=== PATIENT | male | born 1955 | race Caucasian/White ===

== ENCOUNTER → 2018-03-21 06:06 | Outpatient (CLI) | payer MEDICARE, SELFPAY ==
--- NOTE | 2018-03-21 06:08 | CI_ITS ---
Cerebrovascular Exam Indications: 433.10 Occlusion/stenosis of carotid artery without cerebral infarction. IMPRESSIONS 1. The bilateral vertebral arteries are patent with normal antegrade flow. 2. Study suggests 50-69% stenosis involving the right internal carotid artery. 3. Study suggests 50-69% stenosis involving the left internal carotid artery. No change from the study of 16-Aug-2017. Carotid duplex study. Complete study and Doppler flow study including spectral analysis, color and lizama scale imaging. Location: Vascular laboratory. Patient status: Outpatient. Tables: Arterial flow: + +--------+--------+ Location V sys V ed + +--------+--------+ Right CCA - proximal 76.2cm/s 17.3cm/s + +--------+--------+ Right CCA - distal 83.3cm/s 17.3cm/s + +--------+--------+ Right ECA 139cm/s -------- + +--------+--------+ Right ICA - proximal 260cm/s 80.8cm/s + +--------+--------+ Right ICA - mid 122cm/s 22.4cm/s + +--------+--------+ Right ICA - distal 113cm/s 29.2cm/s + +--------+--------+ Right vertebral 60.6cm/s -------- + +--------+--------+ Left CCA - proximal 109cm/s 23.6cm/s + +--------+--------+ Left CCA - distal 94.3cm/s 24.7cm/s + +--------+--------+ Left ECA 108cm/s -------- + +--------+--------+ Left ICA - proximal 126cm/s 35.9cm/s + +--------+--------+ Left ICA - mid 106cm/s 28.1cm/s + +--------+--------+ Left ICA - distal 117cm/s 29.2cm/s + +--------+--------+ Left vertebral 35.9cm/s -------- + +--------+--------+ Velocity ratios: + + + + + + Right, V sys Right, V ed Left, V sys Left, V ed + + + + + + Max ICA/dist CCA 3.12 4.67 1.34 1.45 + + + + + + (Report amended ) Electronically signed by: Kael Jewell [id number]
--- NOTE | 2018-03-21 06:08 | NM_ITS ---
History and Indications: Hypertension, hyperlipidemia, family history, chest pain and shortness of breath Procedure: Patient received a 0.4 mg of intravenous Lexiscan, resting heart rate was 58 bpm resting blood pressure 156/75, with intravenous Lexiscan maximum heart rate achieved was 89 bpm which is less than 85% of the maximum predicted heart rate and a blood pressure was 152/68. With Lexiscan patient complained of shortness of breath. Electrocardiogram: Resting electrocardiogram showed sinus bradycardia, premature ventricular complex, with Lexiscan there is less than 1.[address] segment depression noted from the baseline EKG. The EKG portion of the Lexiscan Myoview is nondiagnostic. Cardiac stress and resting SPECT images: Cardiac stress and rest SPECT images were obtained using technetium 99 Myoview 30.6 mCi stress and 10.1 mCi at rest gated SPECT further analysis of segmental wall motion and calculation of the ejection fraction also done. Cardiac stress and rest SPECT images show uniform myocardial activity without segmental perfusion abnormality, computer derived ejection fraction is 60% with no regional wall motion abnormality, right ventricle is normal size and contractility. Conclusion: 1. The EKG portion of the Lexiscan Myoview is nondiagnostic. 2. No scintigraphic evidence of reversible ischemia seen, computer derived ejection fraction is 60% with no regional wall motion abnormality, right ventricle is normal size and contractility. 3. Normal Lexiscan Myoview study.
--- NOTE | 2018-03-21 06:20 | CA_ITS ---
PROCEDURE: 2-D M-mode and color Doppler study INDICATIONS FOR THE TEST: Chest pain X COPD Heart Murmur Tobacco Smoking Palpitations Fatigue Syncope EdemaX HypertensionXDiabetes Mellitus Rheumatic Fever SOBXDOEXObesity HyperlipidemiaX Family History HD Additional History CAD,CKD,PAD,FREQUENT PVCS NOTED PATIENT INFORMATION HEIGHT: 69 WEIGHT:205 GENDER: Male B/P:133/69 2-D/M-MODE INTERPRETATION: 2-D MEASUREMENTS OBSERVED VALUES IN CMS Right Ventricular Dimension (RVDd) 2.5 Interventricular Septum (Thickness)(IVsd) .9 Left Ventricular Internal Dimensions(LVIDd) 4.8 Left Ventricular Posterior Wall (Thickness)(LVPWd) .9 Aortic Root 2.9 Aortic Cusp Separation 1.4 Left Atrial Dimensions (LAD) 3.0 2D 1. Left atrium is mildly enlarged, left ventricle is normal size, there is no concentric left ventricular hypertrophy, visually estimated ejection fraction 55% with no regional wall motion abnormality. 2. The right atrium and right ventricle are normal size and contractility. 3. The aortic valve is thickened and calcified leaflet continue to display mobility. 4. The mitral and tricuspid valve leaflets are minimally thickened. 5. The pulmonic valve is poorly visualized. 6. No significant pericardial effusion noted. DOPPLER INTERROGATION: Doppler interrogation of the aortic, mitral and tricuspid valvular presence of mild mitral and tricuspid regurgitation, tricuspid regurgitation jet velocity is inadequate for calculation of the right ventricular systolic pressure, grade 1 diastolic dysfunction seen without tissue Doppler evidence of raised left atrial pressure. CONCLUSION: 1. Mildly enlarged left atrium, normal left ventricular size, visually estimated ejection fraction of 55% with no regional wall motion abnormality, grade 1 diastolic dysfunction seen without tissue Doppler evidence of raised left atrial pressure. 2. Mild mitral and tricuspid regurgitation 3. No significant pericardial effusion noted.
--- NOTE | 2018-03-21 07:05 | HMH.ITSHM ---
Current Home Medications as stated by this patient Jack Kendall or customer success representative. []ALLOPURINOL LOSARTAN ATORVASTATIN PANTOPRAZOLE BISOPROLOL CLOPIDOGREL AMLODIPINE ASA FIBER HYDROCODONE
[2018-03-21 13:04] LABS: Amphetamine/Metha Screen,Urine Negative ng/mL (<1000); Barbiturates Screen,Urine Negative ng/mL (<200); Benzodiazepines Screen,Urine Negative ng/mL (<200); Cannabinoid Screen,Urine Negative ng/mL (<50); Cocaine Screen,Urine Negative ng/mL (<300); Methadone Screen,Urine Negative ng/mL (<300); Opiate Screen,Urine Positive ng/mL (<300); Phencyclidine Screen,Urine Negative ng/mL (<25)
== END ==
PROVIDERS: PCP Family Medicine; Visit Provider Internal Medicine
DX: I25.10 Atherosclerotic heart disease of native coronary artery without angina pectoris (principal); R06.00 Dyspnea, unspecified; I65.23 Occlusion and stenosis of bilateral carotid arteries; Z51.81 Encounter for therapeutic drug level monitoring
CPT/HCPCS: 78452; 80305; 93017; 93306; 93880; A9502; J2785

== ENCOUNTER → 2018-08-08 10:05 | Outpatient (CLI) | payer MEDICARE, SELFPAY ==
[2018-08-08 10:55] LABS: Amphetamine/Metha Screen,Urine Negative ng/mL (<1000); Barbiturates Screen,Urine Negative ng/mL (<200); Benzodiazepines Screen,Urine Negative ng/mL (<200); Cannabinoid Screen,Urine Negative ng/mL (<50); Cocaine Screen,Urine Negative ng/mL (<300); Methadone Screen,Urine Negative ng/mL (<300); Opiate Screen,Urine Positive ng/mL (<300); Phencyclidine Screen,Urine Negative ng/mL (<25)
== END ==
PROVIDERS: Visit Provider Internal Medicine
DX: G89.29 Other chronic pain (principal)
CPT/HCPCS: 80305

== ENCOUNTER → 2018-10-11 09:56 | Outpatient (CLI) | payer MEDICARE, OTHER, SELFPAY ==
--- NOTE | 2018-10-11 10:02 | CI_ITS ---
Cerebrovascular Exam Indications: 433.10 Occlusion/stenosis of carotid artery without cerebral infarction. IMPRESSIONS 1. The bilateral vertebral arteries are patent with normal antegrade flow. 2. Study suggests 50-69% stenosis involving the left internal carotid artery and 70-90% stenosis of the right internal carotid artery. No change from the study of 21-Mar-2018. History: Coronary artery disease. Risk factors: Hypertension. Carotid duplex study. Complete study and Doppler flow study including spectral analysis, color and lizama scale imaging. Location: Vascular laboratory. Patient status: Outpatient. Tables: Arterial flow: + +--------+--------+ Location V sys V ed + +--------+--------+ Right CCA - proximal 93.5cm/s 16.5cm/s + +--------+--------+ Right CCA - distal 92.7cm/s 15.7cm/s + +--------+--------+ Right ECA 163cm/s -------- + +--------+--------+ Right ICA - proximal 238cm/s 56cm/s + +--------+--------+ Right ICA - mid 153cm/s 47.1cm/s + +--------+--------+ Right ICA - distal 129cm/s 29.5cm/s + +--------+--------+ Right vertebral 69.7cm/s -------- + +--------+--------+ Left CCA - proximal 134cm/s 20.6cm/s + +--------+--------+ Left CCA - distal 94.3cm/s 16.7cm/s + +--------+--------+ Left ECA 127cm/s -------- + +--------+--------+ Left ICA - proximal 151cm/s 34.4cm/s + +--------+--------+ Left ICA - mid 146cm/s 35.4cm/s + +--------+--------+ Left ICA - distal 166cm/s 29.5cm/s + +--------+--------+ Left vertebral 25.9cm/s -------- + +--------+--------+ Velocity ratios: + + + + + + Right, V sys Right, V ed Left, V sys Left, V ed + + + + + + Max ICA/dist CCA 2.57 3.57 1.76 2.12 + + + + + + (Report amended ) Electronically signed by: Kael Jewell [id number]
== END ==
PROVIDERS: PCP Family Medicine; Visit Provider Internal Medicine
DX: R09.89 Other specified symptoms and signs involving the circulatory and respiratory systems (principal)
CPT/HCPCS: 93880

== ENCOUNTER → 2019-02-14 08:53 | Outpatient (CLI) | payer MEDICARE, OTHER, SELFPAY ==
[2019-02-14 16:23] LABS: Amphetamine/Metha Screen,Urine Negative ng/mL (<1000); Barbiturates Screen,Urine Negative ng/mL (<200); Benzodiazepines Screen,Urine Negative ng/mL (<200); Cannabinoid Screen,Urine Negative ng/mL (<50); Cocaine Screen,Urine Negative ng/mL (<300); Methadone Screen,Urine Negative ng/mL (<300); Opiate Screen,Urine Positive ng/mL (<300); Phencyclidine Screen,Urine Negative ng/mL (<25)
== END ==
PROVIDERS: Visit Provider Internal Medicine
DX: G89.29 Other chronic pain (principal)
CPT/HCPCS: 80305

== ENCOUNTER → 2019-05-30 07:34 | Outpatient (CLI) | payer MEDICARE, OTHER, SELFPAY ==
--- NOTE | 2019-05-30 07:35 | CA_ITS ---
APPROVED REPORT [employer] Consultant: Sharri Eller RVT Laterality: Bilateral Study Quality: Adequate Indications: BLAZE Risk Factors Hypertension: Hyperlipidemia CAD, Doppler Spectral Velocity Analysis ECA (R) 129.00/ cm/s ECA (L) 158.00/36.30 cm/s dICA (R) 248.00/44.90 cm/s dICA (L) 179.00/40.30 cm/s Myrna (R) 265.00/67.40 cm/s Myrna (L) 197.00/32.40 cm/s pICA (R) 267.00/70.20 cm/s pICA (L) 160.00/29.50 cm/s dCCA (R) 127.00/15.70 cm/s dCCA (L) 124.00/20.60 cm/s pCCA (R) 120.00/11.80 cm/s pCCA (L) 148.00/17.70 cm/s Vert (R) 77.60/17.70 cm/s Vert (L) 50.90/ cm/s ICA/CCA 2.10 ICA/CCA 1.59 Conclusion Study suggests 50-69% stenosis of the right internal cartoid artery unchanged 10/11/18. Study suggests 50-69% stenosis of the left internal cartoid artery unchanged 10/11/18. Antegrade flow seen bilateral vertebral arteries. Electronically signed by : Kael Jewell MD 05/30/2019 17:13:20
== END ==
PROVIDERS: PCP Family Medicine; Visit Provider Internal Medicine
DX: I65.23 Occlusion and stenosis of bilateral carotid arteries (principal)
CPT/HCPCS: 93880

== ENCOUNTER → 2019-11-28 07:32 | Outpatient (CLI) | payer MEDICARE, OTHER, SELFPAY ==
--- NOTE | 2019-11-28 | CA_ITS ---
APPROVED REPORT Senior Private Client Advisor: CT Laterality: Bilateral Study Quality: Adequate Risk Factors Hypertension: Hyperlipidemia CAD, Doppler Spectral Velocity Analysis ECA (R) 192.10/10.50 cm/s ECA (L) 187.00/32.00 cm/s dICA (R) 153.70/34.20 cm/s dICA (L) 213.10/46.00 cm/s Myrna (R) 225.50/37.60 cm/s Myrna (L) 190.80/33.40 cm/s pICA (R) 269.90/66.60 cm/s pICA (L) 150.40/32.00 cm/s dCCA (R) 101.10/18.00 cm/s dCCA (L) 117.60/20.00 cm/s pCCA (R) 128.50/12.90 cm/s pCCA (L) 157.60/21.20 cm/s Vert (R) 82.30/20.60 cm/s Vert (L) 33.10/6.50 cm/s ICA/CCA 2.70 ICA/CCA 1.80 Findings Duplex evaluation demonstrates stenosis of the right proximal internal carotid artery in the range of 50-69% with PSV =140 cm/sec, EDV <100 cm/sec, and IC/CC Ratio <4.0. Duplex evaluation demonstrates stenosis of the left proximal internal carotid artery in the range of 50-69% with PSV =140 cm/sec, EDV <100 cm/sec, and IC/CC Ratio <4.0. Duplex evaluation demonstrates antegrade flow of the bilateral Vertebral Arteries. Conclusion Duplex evaluation demonstrates stenosis of the right proximal internal carotid artery in the range of 50-69% with PSV =140 cm/sec, EDV <100 cm/sec, and IC/CC Ratio <4.0. Duplex evaluation demonstrates stenosis of the left proximal internal carotid artery in the range of 50-69% with PSV =140 cm/sec, EDV <100 cm/sec, and IC/CC Ratio <4.0. Duplex evaluation demonstrates antegrade flow of the bilateral Vertebral Arteries. Electronically signed by : Kael Jewell MD 11/29/2019 17:32:56
== END ==
PROVIDERS: PCP Family Medicine; Visit Provider Internal Medicine
DX: I65.23 Occlusion and stenosis of bilateral carotid arteries (principal)
CPT/HCPCS: 93880

== ENCOUNTER → 2020-01-23 12:54 | Outpatient (CLI) | payer MEDICARE, OTHER, SELFPAY ==
[2020-01-23 13:46] LABS: Amphetamine/Metha Screen,Urine Negative ng/ml (<1000)
[2020-01-23 13:47] LABS: Barbiturates Screen,Urine Negative ng/ml (<200); Benzodiazepines Screen,Urine Negative ng/ml (<200)
[2020-01-23 13:48] LABS: Cannabinoid Screen,Urine Negative ng/ml (<50)
[2020-01-23 13:49] LABS: Cocaine Screen,Urine Negative ng/ml (<300); Methadone Screen,Urine Negative ng/ml (<300)
[2020-01-23 13:50] LABS: Opiate Screen,Urine Positive ng/ml (<300); Phencyclidine Screen,Urine Negative ng/ml (<25)
== END ==
PROVIDERS: Visit Provider Internal Medicine
DX: F11.90 Opioid use, unspecified, uncomplicated (principal); G89.29 Other chronic pain
CPT/HCPCS: 80305

== ENCOUNTER → 2020-09-01 12:31 | Outpatient (CLI) | payer MEDICARE, OTHER, SELFPAY ==
--- NOTE | 2020-09-01 12:32 | CA_ITS ---
APPROVED REPORT EXAM: Comprehensive 2D, Doppler, and color-flow Echocardiogram Cuff Cutter: Delmi Lopez RT(R) Ht: 5 ft 10 in Wt: 210lbs BSA: 2.13 BP: 148/67 mmHg Indications: SOA, CAD, PAD, HTN, hyperlipidemia, ex smoker, ZHONG 2D Dimensions LVOT 2.07 cm (M/F) 1.5-2.5 LA Volume 19.30 mL LA Volume Index 9.06 mL/m2 (M/F) 16-34 M-Mode Dimensions RVDd 2.49 cm (0.9-2.6) LA Diam 3.51 cm (1.9-4.0) LVDd 4.55 cm (3.5-5.7) Ao Diam 2.78 cm (2.0-3.7) LVDs 3.38 cm (3.5-5.7) IVSd 1.05 cm (0.6-1.1) PWd 0.76 cm (0.6-1.1) EF (Teich) 50.70% FS 25.70% EDV (Teich) 94.90 mL TAPSE 1.87 (<1.7) ESV (Teich) 46.80 mL LV Diastology E Decel Time 250.00 (160-240 msec) E/A Ratio 0.9 MED E' 5.30 (< 7 cm/sec) E'/MED E' Ratio 12.98 (>14) LAT E' 8.60 (<10 cm/sec) E/LAT E' Ratio 8.00 (>14) Aortic Valve LVOT Max 95.00 (70-110 cm/s) LVOT VTI 17.07 cm AoV Peak John. 150.00 (50-130 cm/s) AO Peak GR. 9.10 mmHg AO Mean GR. 4.40 (<5 mmHg) AO VTI 25.53 (18-25 cm) HANS (VTI) 2.25 (2.5-4.5 cm2) Mitral Valve MV E Max John. 69.00 (40-130 cm/s) MV A Velocity 74.00 (40-130 cm/s) E/A Ratio 0.93 MV Decel. Time 250.00 (160-240 ms) MV PHT 73.00 ms Left Ventricle Left atrium is mildly enlarged, left ventricle is normal size, mild concentric left ventricular hypertrophy, visually estimated ejection fraction 55% with no regional wall motion abnormality, grade 1 diastolic dysfunction seen without tissue Doppler evidence of raise left atrial pressure. Right Ventricle Right atrium and right ventricle are normal size and contractility. Aortic Valve Aortic valve is minimally thickened and calcified contractility without Doppler evidence of aortic stenosis or aortic insufficiency. Mitral Valve Mitral valve is grossly normal, there is mild mitral regurgitation. Tricuspid Valve Tricuspid grossly normal, there is mild tricuspid regurgitation, tricuspid rotation jet velocity is inadequate for calculation of the right ventricular systolic pressure. Pulmonic Valve Pulmonic valve is poorly visualized. Great Vessels Aortic root is normal size. Pericardium No significant pericardial effusion noted. Conclusion 1. Mildly enlarged left atrium, normal left ventricular size, mild concentric left ventricular hypertrophy, visually estimated ejection fraction 55% with no regional wall motion abnormality, grade 1 diastolic dysfunction seen without tissue Doppler evidence of raise left atrial pressure. 2. Mild mitral and tricuspid regurgitation. 3. No significant pericardial effusion noted. Electronically signed by : Yordan Sharma, 09/01/2020 21:59:23
== END ==
PROVIDERS: PCP Family Medicine; Visit Provider Nurse Practitioner Family
DX: R06.00 Dyspnea, unspecified (principal)
CPT/HCPCS: 93306

== ENCOUNTER → 2021-01-27 09:07 | Outpatient (CLI) | payer MEDICARE, OTHER, SELFPAY ==
--- NOTE | 2021-01-27 09:08 | CA_ITS ---
APPROVED REPORT Recovery Specialist: ONEYDA Laterality: Bilateral Study Quality: Good Indications: BLAZE Risk Factors Hypertension: Hyperlipidemia CAD, Doppler Spectral Velocity Analysis ECA (R) 173.20/0.00 cm/s ECA (L) 92.80/0.00 cm/s dICA (R) 119.80/18.10 cm/s dICA (L) 124.20/24.10 cm/s Myrna (R) 217.30/44.60 cm/s Myrna (L) 141.60/28.90 cm/s pICA (R) 224.20/66.90 cm/s pICA (L) 131.90/18.30 cm/s dCCA (R) 90.80/12.90 cm/s dCCA (L) 104.00/12.70 cm/s pCCA (R) 78.60/8.60 cm/s pCCA (L) 111.50/8.20 cm/s Vert (R) 41.90/8.10 cm/s Vert (L) 12.30/3.40 cm/s ICA/CCA 2.80 ICA/CCA 1.36 Findings Duplex evaluation demonstrates antegrade flow of the bilateral Vertebral Arteries. Duplex evaluation demonstrates stenosis of the right proximal internal carotid artery in the range of 50-69%. Duplex evaluation demonstrates stenosis of the left proximal internal carotid artery in the range of 50-69%. Real Time B-Mode Imaging Area Right Description Left Description CCA Intimal thickening, Smooth, Focal Heterogeneous with calcification, Irregular, Diffuse Conclusion Duplex evaluation demonstrates antegrade flow of the bilateral Vertebral Arteries. Duplex evaluation demonstrates stenosis of the right proximal internal carotid artery in the range of 50-69%. Duplex evaluation demonstrates stenosis of the left proximal internal carotid artery in the range of 50-69%. Electronically signed by : Kael Jewell MD 01/27/2021 16:32:26
== END ==
PROVIDERS: PCP Family Medicine; Visit Provider Nurse Practitioner Family
DX: R09.89 Other specified symptoms and signs involving the circulatory and respiratory systems; I65.23 Occlusion and stenosis of bilateral carotid arteries
CPT/HCPCS: 93880

== ENCOUNTER → 2021-09-18 07:16 | Outpatient (CLI) | payer MEDICARE, OTHER, SELFPAY ==
--- NOTE | 2021-09-18 | CA_ITS ---
APPROVED REPORT Exam: Pharmacologic Technologist: Aline Acuna, Ht: 5 ft 10 in Wt: 219 lbs BSA: 2.17 m2 HR: 64 bpm BP: 150/72 mmHg Medical History Medical History: HTN, Hyperlipidemia Medications: Amlodipine,,,,, Aspirin,,,,, Losartan,,,,, Allopurinol,,,,, Atorvastatin,,,,, CloPIdogrel,,,,, BisOPROLOL,,,,, Cyclobenzaprine,,,,, PantPRAZOLE,,,,, Acetaminophen-codeine,,,,, FumERATE,,,,, AmiTRIPTYINE,,,,, Allergies: GABAPENTIN Cardiac Risk Factors: HTN, Hyperlipidemia, FHX of CAD, Smoking Stress Test Details Test: LEXISCAN HR Resting HR: 67 bpm Max Heart Rate (APMHR): 152.603414 bpm Max HR Achieved: 89 bpm Target HR (85% APMHR): 129.955722 bpm % of APMHR: 58.55 Recovery HR: 64 bpm BP Resting BP: 143/56 mmHg Max BP: 166/64 mmHg Recovery BP: 150.0/72.0 mmHg ECG Clinical Exercise duration: 04:04 min Highest Stage Achieved: Stress ECG Conclusion PT BECAME SOA AND HAD SOME CHEST TIGHNTESS. PVCS NOTED. PAC NOTED. RESOLVED IN RECOVERY. <1.[address] SEGMENT DEPRESSION. Electronically signed by : Yordan Sharma MD 09/18/2021 14:20:50
--- NOTE | 2021-09-18 07:17 | NM_ITS ---
APPROVED REPORT Exam: Nuclear Stress Test Indication: HTN, Jean, VIANEY JJ, C.PCele Patient Location: Outpatient Stress Tech: Aline Acuna [place] Tech:Naya Price SHELLEYMarla RT (R)(N)(M) Ht: 5 ft 10 in Wt: 220 lbs HR: 66 bpm BP: 143/56 mmHg BSA: 2.17 m2 BMI: 31.5 History: Jean ROOT, VIANEY JJ, C.P. Procedure: Patient received a 0.4 mg of intravenous Lexiscan, resting heart rate 66 bpm, resting blood pressure 143/56 mmHg, with Lexiscan maximum heart rate achived was 89 bpm which is Less than 85 % of the maximum predicted heart rate and blood pressure was 166/64 mmHg. C/O SOA, CHEST TIGHTNESS Electrocardiogram Resting electrocardiogram shows sinus rhythm, with Lexiscan there is less than 1.[address] segment depression noted from the baseline EKG. Scan is nondiagnostic. Cardiac Stress and Resting SPECT Images: Cardiac Stress and Resting SPECT images were obtained using technetium 99m Myoview 29.5 mCi stress and 10.73 mCi at rest. Gated SPECT for analysis of segmental wall motion and calculation of the ejection fraction, prone images were also obtained. Cardiac stress and resting SPECT images show uniform myocardial activity without segmental perfusion abnormality, computer derived ejection fraction is 58% with no regional wall motion abnormality, right ventricle is normal size and contractility. Conclusion: 1. The EKG portion of the Lexiscan is nondiagnostic. 2. No scintigraphic evidence of reversible ischemia seen. Computer derived ejection fraction 58% with no regional wall motion abnormality, right ventricle is normal size and contractility. 3. Normal Lexiscan Myoview study. Electronically signed by : Yordan Sharma MD 09/18/2021 14:31:08
--- NOTE | 2021-09-18 07:58 | CA_ITS ---
FINAL REPORT TECHNIQUE: Color Doppler, duplex Doppler and lizama scale sonography of the bilateral neck arterial vasculature was performed. Velocities were measured in the carotid arteries. Stenosis evaluation based on the validated velocity criteria. CLINICAL HISTORY: bilateral ICA stenosis FINDINGS: The peak systolic velocity of the right common carotid artery is 94 cm/s. The peak systolic velocity of the right internal carotid artery is 306 cm/s and end diastolic velocity 74 cm/s. The ICA/CCA ratio is 4.18. A moderate to advanced amount of plaque is present. The right external carotid artery is patent. The right vertebral artery is patent with antegrade flow. The peak systolic velocity of the left common carotid artery is 105 cm/s. The peak systolic velocity of the left internal carotid artery is 165 cm/s and end diastolic velocity 35 cm/s. The ICA/CCA ratio is 1.89. A moderate to advanced amount of plaque is present. The left external carotid artery is patent.The left vertebral artery is patent with antegrade flow. IMPRESSION: Less than 50% left carotid stenosis. Greater than 50% right carotid stenosis. Bilateral patent vertebral arteries with antegrade flow. If indicated, CTA or MRA could further evaluate. Reviewed, Interpreted and Dictated by Augusto Cui MD Transcribed by Anna Snow Authenticated by Augusto Cui MD on 09/18/2021 11:33:01 AM [facility]
== END ==
PROVIDERS: PCP Family Medicine; Visit Provider Physician Assistant
DX: I25.118 Atherosclerotic heart disease of native coronary artery with other forms of angina pectoris (principal); I65.23 Occlusion and stenosis of bilateral carotid arteries
CPT/HCPCS: 78452; 93017; 93880; A9502; J2785

== ENCOUNTER → 2022-06-18 10:32 | Outpatient (CLI) | payer MEDICARE, OTHER, SELFPAY ==
--- NOTE | 2022-06-18 10:34 | CA_ITS ---
FINAL REPORT TECHNIQUE: Color Doppler, duplex Doppler and lizama scale sonography of the bilateral neck arterial vasculature was performed. Velocities were measured in the carotid arteries. Stenosis evaluation based on the validated velocity criteria. CLINICAL HISTORY: BLAZE, HTN, HLD, CAD, PAD, dizziness FINDINGS: The peak systolic velocity of the right common carotid artery is 128 cm/s. The peak systolic velocity of the right internal carotid artery is 265 cm/s and end diastolic velocity 73 cm/s. The ICA/CCA ratio is 2.1. A moderate amount of plaque is present. The right external carotid artery is patent. The right vertebral artery is patent with antegrade flow. The peak systolic velocity of the left common carotid artery is 207 cm/s. The peak systolic velocity of the left internal carotid artery is 173 cm/s and end diastolic velocity 32 cm/s. The ICA/CCA ratio is 0.8. A mild amount of plaque is present. The left external carotid artery is patent.The left vertebral artery is patent with antegrade flow. IMPRESSION: Less than 50% left carotid stenosis. 50-69 % right carotid stenosis. Recommend further evaluation with contrast-enhanced CTA or MRA. Bilateral patent vertebral arteries with antegrade flow. Reviewed, Interpreted and Dictated by Ismael Garzon MD Transcribed by Anna Snow Authenticated and [facility]
== END ==
PROVIDERS: PCP Family Medicine; Visit Provider Nurse Practitioner Family
DX: I65.23 Occlusion and stenosis of bilateral carotid arteries (principal)
CPT/HCPCS: 93880

== ENCOUNTER → 2023-01-07 09:07 | Outpatient (CLI) | payer MEDICARE, OTHER, SELFPAY ==
--- NOTE | 2023-01-07 09:10 | CA_ITS ---
FINAL REPORT TECHNIQUE: Color Doppler, duplex Doppler and lizama scale sonography of the bilateral neck arterial vasculature was performed. Velocities were measured in the carotid arteries. Stenosis evaluation based on the validated velocity criteria. CLINICAL HISTORY: BLAZE FINDINGS: The peak systolic velocity of the right common carotid artery is 111 cm/s. The peak systolic velocity of the right internal carotid artery is 255 cm/s and end diastolic velocity 59 cm/s. The ICA/CCA ratio is 3.2. A moderate amount of plaque is present. The right external carotid artery is patent. The right vertebral artery is patent with antegrade flow. The peak systolic velocity of the left common carotid artery is 105 cm/s. The peak systolic velocity of the left internal carotid artery is 156 cm/s and end diastolic velocity 31 cm/s. The ICA/CCA ratio is 1.6. A small amount of plaque is present. The left external carotid artery is patent.The left vertebral artery is patent with antegrade flow. IMPRESSION: Greater than 70% right carotid stenosis. Left than 50% left carotid stenosis. Bilateral patent vertebral arteries with antegrade flow. If indicated, CTA or MRA could further evaluate. Reviewed, Interpreted and Dictated by Tyshawn Chirinos III, MD Transcribed by Joselyn Munoz Authenticated and [facility]
== END ==
PROVIDERS: PCP Family Medicine; Visit Provider Internal Medicine
DX: I65.23 Occlusion and stenosis of bilateral carotid arteries (principal)
CPT/HCPCS: 93880

== ENCOUNTER → 2023-01-26 13:13 | Outpatient (CLI) | payer MEDICARE, OTHER, SELFPAY ==
--- NOTE | 2023-01-26 13:17 | CT_ITS ---
FINAL REPORT TECHNIQUE: Thin section axial CT with IV contrast supplemented with multiplanar reconstruction under CT angiogram protocol. This study was performed with techniques to keep radiation doses as low as reasonably achievable (ALARA). Individualized dose reduction techniques using automated exposure control or adjustment of mA and/or kV according to the patient''s size were employed. NASCET criteria was utilized during interpretation. CLINICAL HISTORY: carotid artery stenosis COMPARISON: Carotid duplex 01/07/2023 FINDINGS: Aortic arch: Arch shows no significant narrowing. Great vessel origins are widely patent. Right carotid: Approximately 60 to 70% diameter stenosis proximal right internal carotid artery. Left carotid: 40% stenosis proximal left internal carotid artery. Vertebral: Right vertebral artery is dominant. No significant stenosis is present. IMPRESSION: Approximately 60 to 70% stenosis right ICA. 40% stenosis left ICA. Reviewed, Interpreted and Dictated by Tyshawn Chirinos III, MD Transcribed by Wendy Guillaume Authenticated and [facility]
== END ==
PROVIDERS: PCP Family Medicine; Visit Provider Nurse Practitioner Family
DX: I11.9 Hypertensive heart disease without heart failure (principal); I25.118 Atherosclerotic heart disease of native coronary artery with other forms of angina pectoris; I65.23 Occlusion and stenosis of bilateral carotid arteries; I73.9 Peripheral vascular disease, unspecified; N18.30 Chronic kidney disease, stage 3 unspecified
CPT/HCPCS: 70498; Q9967

== ENCOUNTER 2023-07-18 10:05 | Outpatient (CLI) | payer MEDICARE, OTHER, SELFPAY ==
--- NOTE | 2023-07-18 10:05 | CT_ITS ---
FINAL REPORT TECHNIQUE: Thin section axial images were obtained through the neck after contrast administration per CT angiogram protocol. Multiplanar reconstruction images were obtained from the axial data. Exam was performed using dose reduction technique. CLINICAL HISTORY: BLAZE COMPARISON: 01/26/2023 FINDINGS: CTA NECK: Aortic arch: There is a normal three-vessel configuration to the aortic arch. There is no significant stenosis of the great vessels at their origins. Right carotid artery: The right common carotid artery is patent without stenosis. There is stable 60 to 70% stenosis of the right internal carotid artery proximally. The more distal portions are patent without stenosis. Left carotid artery: The left common carotid artery is patent without stenosis. There is stable approximately 40% stenosis of the proximal left internal carotid artery. Vertebral arteries: The vertebral arteries are patent. Other soft tissues: Multiple small bilateral cervical lymph nodes are stable. Remaining soft tissues without acute abnormality.. IMPRESSION: Stable right 60 to 70% and left 40% stenosis of the ICAs. Reviewed, Interpreted and Dictated by Pamela Bernabe MD Transcribed by Wendy Guillaume Authenticated and [facility]
[2023-07-18] MEDS: SODIUM CHLORIDE 0.9% 10ML SYR (RAD ONLY) 10 ML IV (10:52)
[2023-07-18] MEDS: IOPAMIDOL-370 (76%);100ML BOTTLE 100 ML IV (10:52)
[2023-07-18] MEDS: 0.9 % SODIUM CHLORIDE 50 ML VIAL IV (10:52)
== END 2023-07-18 23:59 ==
LOC: RAD 10:05
PROVIDERS: PCP Family Medicine; Visit Provider Physician Assistant
DX: I25.10 Atherosclerotic heart disease of native coronary artery without angina pectoris (principal); I65.23 Occlusion and stenosis of bilateral carotid arteries
CPT/HCPCS: 70498; Q9967

== ENCOUNTER 2024-11-22 10:50 | Outpatient (CLI) | payer MEDICARE, OTHER, SELFPAY ==
--- OUTSIDE RECORDS SUMMARY | 2024-11-22 11:02 | XMS_ITS | Data Portability ---
Author Organization [place] [facility] [place] [facility] [place] [facility] ADMIN Address [address] [place] [id number] Care Team Providers Care Manufacturing Engineer Supervisor Name Role Phone CARMENCHRISTOPHER Primary Care Provider Assessment Encounter Date Assessment Date Assessment LastModified by Organization Details LastModified Time 12/15/2022 12/15/2022 67-year-old male with a 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 Leger. The patient presents to the clinic today 1 week S/P SCS implant for a post-op check. The patient reports experiencing significant improvement in pain and function similar to that of the trial period. The midline and gluteal incision sites are healing well. Sutures removed, steri-strips applied over the incisions. The patient denies post-op complications or signs of infection. I addressed all questions/concern s regarding post-op care/restrictions . An [employer] representative was present for education and to assist with reprogramming. I will follow up in 1 week for a 2 week post-op check. FROM PRIOR VISIT: The patient was scheduled for a MRI in 01/2022, at which time he was informed that one of the leads was either loose or broken. [facility] scheduled an appointment on 02/05/22 to follow up with intention on ordering imaging, but the patient couldn't have the appointment, as the patient was in the process of managing prostate cancer. Of note, the patient recently completed imaging (thoracic/lumbar x-ray) at [place]. The imaging was ordered to assess the lead placement to ensure migration hasn't occurred. I reviewed imaging, which revealed one lead at T12/L1 and another at T7. After reviewing imaging, I have concluded that one lead has migrated inferiorly. I have conducted a reprogramming on multiple occasions without benefit. SCS therapy was previously successful in controlling pain, ultimately having a positive impact on quality of life. I counseled the patient extensively and informed of the risks of the procedure, including the risk of paralysis, nerve damage, respiratory arrest, arrhythmias, stroke, weakness, and infection, which although very low, could result in or disability. The patient acknowledged to me that they understand and accept these risks. RN EDUCATION Extensive coordination of care provided by RN to educate patient on upcoming procedure and to coordinate obtaining extensive incoming medical records. I have discussed in great detail our potential treatment options which would include a rehabilitative approach to care. This program would include medication management, Physical Therapy, consideration for interventional procedures as appropriate, and lifestyle modification (diet, weight loss, exercise, smoking/tobacco cessation, holistic approach including meditation and yoga). The patient understands and agrees prior to proceeding with this plan. _ __ __ __ __ __ __ __ __ __ __ __ __ __ __ __ __ __ __ __ __ __ __ __ __ __ __ __ _ RECORDS REVIEW: As per clinic policy, we will have the patient sign a release to obtain previous imaging and clinical notes. _ __ __ __ __ __ __ __ __ __ __ __ __ __ __ __ __ __ __ __ __ __ __ __ __ __ __ __ _ PSYCH: Pain affecting Neuro-psych behavior was discussed. Discussed about pain psychological counseling as a part of the multimodal approach to pain treatment. _ __ __ __ __ __ __ __ __ __ __ __ __ __ __ __ __ __ __ __ __ __ __ __ __ __ __ __ _ REHABILITATION: Discussed with the patient the importance of diet, daily physical activity and PT. Discussed with the patient the need to be scheduled for physical therapy since physical therapy will prolong the benefits of the procedure and interventions. _ __ __ __ __ __ __ __ __ __ __ __ __ __ __ __ __ __ __ __ __ __ __ __ __ __ __ __ _ NICHOLAS: [id number] I have reviewed patient's NICHOLAS report prior to prescribing Schedule II, III, and IV medications that require review by law. [email or web address] Not available 12/15/2022 10:59:47 12/24/2022 12/24/2022 67-year-old male with a 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 Leger. The patient presents to the clinic today 2 week S/P SCS implant for a post-op check. The patient reports experiencing significant improvement in pain and function similar to that of the trial period. He continues to have pain going from a seated to standing position. Pain today is 5/10. The midline and gluteal incision sites are healing well. The patient denies post-op complications or signs of infection. I addressed all questions/concern s regarding post-op care/restrictions . An [employer] representative was present for education and to assist with reprogramming. I will follow up in 2 week for a one month post-op check. FROM PRIOR VISIT: The patient was scheduled for a MRI in 01/2022, at which time he was informed that one of the leads was either loose or broken. [facility] scheduled an appointment on 02/05/22 to follow up with intention on ordering imaging, but the patient couldn't have the appointment, as the patient was in the process of managing prostate cancer. Of note, the patient recently completed imaging (thoracic/lumbar x-ray) at [place]. The imaging was ordered to assess the lead placement to ensure migration hasn't occurred. I reviewed imaging, which revealed one lead at T12/L1 and another at T7. After reviewing imaging, I have concluded that one lead has migrated inferiorly. I have conducted a reprogramming on multiple occasions without benefit. SCS therapy was previously successful in controlling pain, ultimately having a positive impact on quality of life. I counseled the patient extensively and informed of the risks of the procedure, including the risk of paralysis, nerve damage, respiratory arrest, arrhythmias, stroke, weakness, and infection, which although very low, could result in or disability. The patient acknowledged to me that they understand and accept these risks. RN EDUCATION Extensive coordination of care provided by RN to educate patient on upcoming procedure and to coordinate obtaining extensive incoming medical records. I have discussed in great detail our potential treatment options which would include a rehabilitative approach to care. This program would include medication management, Physical Therapy, consideration for interventional procedures as appropriate, and lifestyle modification (diet, weight loss, exercise, smoking/tobacco cessation, holistic approach including meditation and yoga). The patient understands and agrees prior to proceeding with this plan. _ __ __ __ __ __ __ __ __ __ __ __ __ __ __ __ __ __ __ __ __ __ __ __ __ __ __ __ _ RECORDS REVIEW: As per clinic policy, we will have the patient sign a release to obtain previous imaging and clinical notes. _ __ __ __ __ __ __ __ __ __ __ __ __ __ __ __ __ __ __ __ __ __ __ __ __ __ __ __ _ PSYCH: Pain affecting Neuro-psych behavior was discussed. Discussed about pain psychological counseling as a part of the multimodal approach to pain treatment. _ __ __ __ __ __ __ __ __ __ __ __ __ __ __ __ __ __ __ __ __ __ __ __ __ __ __ __ _ REHABILITATION: Discussed with the patient the importance of diet, daily physical activity and PT. Discussed with the patient the need to be scheduled for physical therapy since physical therapy will prolong the benefits of the procedure and interventions. _ __ __ __ __ __ __ __ __ __ __ __ __ __ __ __ __ __ __ __ __ __ __ __ __ __ __ __ _ NICHOLAS: [id number] I have reviewed patient's NICHOLAS report prior to prescribing Schedule II, III, and IV medications that require review by law. [email or web address] Not available 12/27/2022 09:07:29 01/14/2023 01/14/2023 The patient is a 67 year old male referred by Dr. Leger for low back and BLE pain. 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 The patient presents to the clinic today 1 month S/P SCS lead revision to follow up on pain. It appears that SCS therapy is effective in controlling a particular aspect of pain; however, he continues to complain of mid-low back and buttock/hip pain, which decreases function, thereby negatively affecting quality of life. In effort to better target the pain pattern, I will conduct a reprogramming. An [employer] representative was present for education and to assist with reprogramming. REPROGRAMMING 1. Enhance coverage of right hip 2. Ran diagnostic I think the mechanism of pain is rather complex due to an extensive surgical history, including a lumbar fusion at L4-S1, lumbar laminectomy at L2-L3, and bilateral RORO. I'm suspicious of underlying sacroiliitis, which I anticipate addressing in the near future. The goal is to optimize SCS therapy at this time. I will follow up in 1 month to reassess pain. FROM PRIOR VISIT: The patient was scheduled for a MRI in 01/2022, at which time he was informed that one of the leads was either loose or broken. [facility] scheduled an appointment on 02/05/22 to follow up with intention on ordering imaging, but the patient couldn't have the appointment, as the patient was in the process of managing prostate cancer. Of note, the patient recently completed imaging (thoracic/lumbar x-ray) at [place]. The imaging was ordered to assess the lead placement to ensure migration hasn't occurred. I reviewed imaging, which revealed one lead at T12/L1 and another at T7. After reviewing imaging, I have concluded that one lead has migrated inferiorly. I have conducted a reprogramming on multiple occasions without benefit. SCS therapy was previously successful in controlling pain, ultimately having a positive impact on quality of life. I counseled the patient extensively and informed of the risks of the procedure, including the risk of paralysis, nerve damage, respiratory arrest, arrhythmias, stroke, weakness, and infection, which although very low, could result in or disability. The patient acknowledged to me that they understand and accept these risks. RN EDUCATION Extensive coordination of care provided by RN to educate patient on upcoming procedure and to coordinate obtaining extensive incoming medical records. I have discussed in great detail our potential treatment options which would include a rehabilitative approach to care. This program would include medication management, Physical Therapy, consideration for interventional procedures as appropriate, and lifestyle modification (diet, weight loss, exercise, smoking/tobacco cessation, holistic approach including meditation and yoga). The patient understands and agrees prior to proceeding with this plan. _ __ __ __ __ __ __ __ __ __ __ __ __ __ __ __ __ __ __ __ __ __ __ __ __ __ __ __ _ RECORDS REVIEW: As per clinic policy, we will have the patient sign a release to obtain previous imaging and clinical notes. _ __ __ __ __ __ __ __ __ __ __ __ __ __ __ __ __ __ __ __ __ __ __ __ __ __ __ __ _ PSYCH: Pain affecting Neuro-psych behavior was discussed. Discussed about pain psychological counseling as a part of the multimodal approach to pain treatment. _ __ __ __ __ __ __ __ __ __ __ __ __ __ __ __ __ __ __ __ __ __ __ __ __ __ __ __ _ REHABILITATION: Discussed with the patient the importance of diet, daily physical activity and PT. Discussed with the patient the need to be scheduled for physical therapy since physical therapy will prolong the benefits of the procedure and interventions. _ __ __ __ __ __ __ __ __ __ __ __ __ __ __ __ __ __ __ __ __ __ __ __ __ __ __ __ _ NICHOLAS: [id number] I have reviewed patient's NICHOLAS report prior to prescribing Schedule II, III, and IV medications that require review by law. [email or web address] Not available 01/17/2023 10:22:00 02/24/2023 02/24/2023 The patient is a 67 year old male referred by Dr. Leger for low back and BLE pain. 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 The patient presents to the clinic today 2 month S/P SCS lead revision for post op check and reprogramming. The patient states that SCS therapy is effective; however, he continues to complain of low back pain, which decreases function, thereby negatively affecting quality of life. Today the pain level is a 5/10. An [employer] representative was present for education and to assist with reprogramming. REPROGRAMMING 1. Enhance coverage of right back/leg 2. Ran diagnostic From previous visit: I think the mechanism of pain is rather complex due to an extensive surgical history, including a lumbar fusion at L4-S1, lumbar laminectomy at L2-L3, and bilateral RORO. I'm suspicious of underlying sacroiliitis, which I anticipate addressing in the near future. The goal is to optimize SCS therapy at this time. I will follow up in 2 months to reassess pain. FROM PRIOR VISIT: The patient was scheduled for a MRI in 01/2022, at which time he was informed that one of the leads was either loose or broken. [facility] scheduled an appointment on 02/05/22 to follow up with intention on ordering imaging, but the patient couldn't have the appointment, as the patient was in the process of managing prostate cancer. Of note, the patient recently completed imaging (thoracic/lumbar x-ray) at [place]. The imaging was ordered to assess the lead placement to ensure migration hasn't occurred. I reviewed imaging, which revealed one lead at T12/L1 and another at T7. After reviewing imaging, I have concluded that one lead has migrated inferiorly. I have conducted a reprogramming on multiple occasions without benefit. SCS therapy was previously successful in controlling pain, ultimately having a positive impact on quality of life. I counseled the patient extensively and informed of the risks of the procedure, including the risk of paralysis, nerve damage, respiratory arrest, arrhythmias, stroke, weakness, and infection, which although very low, could result in or disability. The patient acknowledged to me that they understand and accept these risks. RN EDUCATION Extensive coordination of care provided by RN to educate patient on upcoming procedure and to coordinate obtaining extensive incoming medical records. I have discussed in great detail our potential treatment options which would include a rehabilitative approach to care. This program would include medication management, Physical Therapy, consideration for interventional procedures as appropriate, and lifestyle modification (diet, weight loss, exercise, smoking/tobacco cessation, holistic approach including meditation and yoga). The patient understands and agrees prior to proceeding with this plan. _ __ __ __ __ __ __ __ __ __ __ __ __ __ __ __ __ __ __ __ __ __ __ __ __ __ __ __ _ RECORDS REVIEW: As per clinic policy, we will have the patient sign a release to obtain previous imaging and clinical notes. _ __ __ __ __ __ __ __ __ __ __ __ __ __ __ __ __ __ __ __ __ __ __ __ __ __ __ __ _ PSYCH: Pain affecting Neuro-psych behavior was discussed. Discussed about pain psychological counseling as a part of the multimodal approach to pain treatment. _ __ __ __ __ __ __ __ __ __ __ __ __ __ __ __ __ __ __ __ __ __ __ __ __ __ __ __ _ REHABILITATION: Discussed with the patient the importance of diet, daily physical activity and PT. Discussed with the patient the need to be scheduled for physical therapy since physical therapy will prolong the benefits of the procedure and interventions. _ __ __ __ __ __ __ __ __ __ __ __ __ __ __ __ __ __ __ __ __ __ __ __ __ __ __ __ _ NICHOLAS: [id number] I have reviewed patient's NICHOLAS report prior to prescribing Schedule II, III, and IV medications that require review by law. [email or web address] Not available 02/25/2023 10:00:11 04/23/2024 04/23/2024 Mr. Kendall was referred by Dr. Leger for low back and BLE pain. The has a history of failed lumbar syndrome post lumbar fusion and lumbar surgery x3. The patient is post SCS implant x2 thoracic leads in 08/2020, with lead revision in 11/2022. Not available 04/24/2024 11:04:57 Plan of Treatment Reminders Order Date Submit Date Provider Last Modified By Organization Details Last Modified Time Details Appointments None record ed. Lab None record ed. Referral None record ed. Procedures None record ed. Surgeries None record ed. Imaging None record ed. Medication Orders None record ed. Patient TargetsNo targets recorded. Patient InstructionsNo instructions recorded. Reason for Referral None Reported. Results Created Date Observation Date Name Description Value Unit Range Abnormal Flag Note LastModifiedBy Organization Detail LastModifiedTime 12/04/1912/03/2022 CBC AUTO W DIFF WBC 12.8 K/uL 4.0-10 .5 high Not Available [facility] ([facility]) [address] , [place], [address], 12/03/2022 11:00:13 12/04/19 23 12/03/2022 CBC AUTO W DIFF RBC 5.0 M/mm3 4.7-6. 1 Not Available [facility] ([facility]) [address] , [place], [address], 12/03/2022 11:00:13 12/04/19 23 12/03/2022 CBC AUTO W DIFF HGB 14.5 gm/dL 13.5-1 8.0 Not Available [facility] ([facility]) [address], [place], [address], 12/03/2022 11:00:13 12/04/19 23 12/03/2022 CBC AUTO W DIFF HCT 44.2 % 42.0-5 2.0 Not Available [facility] ([facility]) [address], [place], [address], 12/03/2022 11:00:13 12/04/19 23 12/03/2022 CBC AUTO W DIFF MCV 88.9 fL 78-100 Not Available [facility] ([facility]) [address] , [place], [address], 12/03/2022 11:00:13 12/04/19 23 12/03/2022 CBC AUTO W DIFF MCH 29.2 pg 27-31 Not Available [facility] ([facility]) [address] , [place], [address], 12/03/2022 11:00:13 12/04/19 23 12/03/2022 CBC AUTO W DIFF MCHC 32.8 g/dL 32-36 Not Available [facility] ([facility]) [address] , [place], [address], 12/03/2022 11:00:13 12/04/19 23 12/03/2022 CBC AUTO W DIFF RDW 14.0 % 11.5-1 4.0 Not Available [facility] ([facility]) [address] , [place], [address], 12/03/2022 11:00:13 12/04/19 23 12/03/2022 CBC AUTO W DIFF platelet count 238 K/uL 150-45 0 Not Available [facility] ([facility]) [address], [place], [address], 12/03/2022 11:00:13 12/04/19 23 12/03/2022 CBC AUTO W DIFF neutrophil% 59.5 % 43-65 Not Available [facility] ([facility]) [address], [place], [address], 12/03/2022 11:00:13 12/04/19 23 12/03/2022 CBC AUTO W DIFF lymphocyte% 26.3 % 20.5-4 5.5 Not Available [facility] ([facility]) [address], [place], [address], 12/03/2022 11:00:13 12/04/19 23 12/03/2022 CBC AUTO W DIFF monocyte% 8.5 % 5.5-11 .7 Not Available [facility] ([facility]) [address] , [place], [address], 12/03/2022 11:00:13 12/04/19 23 12/03/2022 CBC AUTO W DIFF eosinophil% 3.6 % 0.9-2. 9 high Not Available [facility] ([facility]) [address] [place], [address], 12/03/2022 11:00:13 12/04/19 23 12/03/2022 CBC AUTO W DIFF basophil% 1.6 % 0.2-1. 0 high Not Available [facility] ([facility]) [address] [place], [address], 12/03/2022 11:00:13 12/04/19 23 12/03/2022 CBC AUTO W DIFF neutrophil# 7.6 K/uL 2.2-4. 8 high Not Available [facility] ([facility]) [address], [place], [address], 12/03/2022 11:00:13 12/04/19 23 12/03/2022 CBC AUTO W DIFF lymphocyte# 3.4 cell/ mcL 1.3-2. 9 high Not Available [facility] ([facility]) [address], [place], [address], 12/03/2022 11:00:13 12/04/19 23 12/03/2022 CBC AUTO W DIFF monocyte# 1.1 cell/ mcL 0.3-0. 8 high Not Available [facility] ([facility]) [address] [facility], [place], [address], 12/03/2022 11:00:13 12/04/19 23 12/03/2022 CBC AUTO W DIFF eosinophil# 0.5 cell/ mcL 0-0.2 high Not Available [facility] ([facility]) [address] [facility], [place], [address], 12/03/2022 11:00:13 12/04/19 23 12/03/2022 CBC AUTO W DIFF basophil# 0.2 cell/ mcL 0.0-1. 0 Not Available [facility] ([facility]) [address] [facility], [place], [address], 12/03/2022 11:00:13 12/04/19 23 12/03/2022 CBC AUTO W DIFF manual differential NO Not Available [facility] ([facility]) [address], [place], [address], 12/03/2022 11:00:13 12/04/19 23 12/03/2022 COMP METAB OLIC PANEL sodium 139 mmol/ L 136-14 5 Not Available [facility] ([facility]) [address] , [place], [address], 12/03/2022 11:09:28 12/04/19 23 12/03/2022 COMP METAB OLIC PANEL potassium 4.3 mmol/ L 3.6-5. 0 Not Available [facility] ([facility]) [address] , [place], [address], 12/03/2022 11:09:28 12/04/19 23 12/03/2022 COMP METAB OLIC PANEL chloride 103 mmol/ L 98-107 Not Available [facility] ([facility]) [address] , [place], [address], 12/03/2022 11:09:28 12/04/19 23 12/03/2022 COMP METAB OLIC PANEL carbon dioxide 27.9 mmol/ L 21.0-3 2.0 Not Available [facility] ([facility]) [address] , [place], [address], 12/03/2022 11:09:28 12/04/19 23 12/03/2022 COMP METAB OLIC PANEL anion gap 12.4 Not Available [facility] ([facility]) [address] , [place], [address], 12/03/2022 11:09:28 12/04/19 23 12/03/2022 COMP METAB OLIC PANEL glucose 120 mg/dL 70-120 Not Available [facility] ([facility]) [address] , [place], [address], 12/03/2022 11:09:28 12/04/19 23 12/03/2022 COMP METAB OLIC PANEL BUN 22 mg/dL 7-18 high Not Available [facility] ([facility]) [address] , [place], [address], 12/03/2022 11:09:28 12/04/19 23 12/03/2022 COMP METAB OLIC PANEL creatinine 1.8 mg/dL 0.6-1. 3 high Not Available [facility] ([facility]) [address], [place], [address], 12/03/2022 11:09:28 12/04/19 23 12/03/2022 COMP METAB OLIC PANEL glomerular filtration rate 40 mlper min 60- low Not Available [facility] ([facility]) [address], [place], [address], 12/03/2022 11:09:28 12/04/19 23 12/03/2022 COMP METAB OLIC PANEL total protein 7.6 g/dL 6.4-8. 2 Not Available [facility] ([facility]) [address] , [place], [address], 12/03/2022 11:09:28 12/04/19 23 12/03/2022 COMP METAB OLIC PANEL albumin 3.9 g/dL 3.4-5. 0 Not Available [facility] ([facility]) [address], [place], [address], 12/03/2022 11:09:28 12/04/19 23 12/03/2022 COMP METAB OLIC PANEL globulin 3.7 Not Available [facility] ([facility]) [address] , [place], [address], 12/03/2022 11:09:28 12/04/19 23 12/03/2022 COMP METAB OLIC PANEL alb/glob ratio 1.1 0.7-2 Not Available [facility] ([facility]) [address], [place], [address], 12/03/2022 11:09:28 12/04/19 23 12/03/2022 COMP METAB OLIC PANEL calcium 9.6 mg/dL 8.5-10 .5 Not Available [facility] ([facility]) [address] , [place], [address], 12/03/2022 11:09:28 12/04/19 23 12/03/2022 COMP METAB OLIC PANEL bilirubin total 0.60 mg/dL 0.10-1 .00 Not Available [facility] ([facility]) [address], [place], [address], 12/03/2022 11:09:28 12/04/19 23 12/03/2022 COMP METAB OLIC PANEL AST (SGOT) 26 U/L 0-37 Not Available [facility] ([facility]) [address], [place], [address], 12/03/2022 11:09:28 12/04/19 23 12/03/2022 COMP METAB OLIC PANEL ALT (SGPT) 41 U/L 0-65 Not Available [facility] ([facility]) [address] [facility], [place], [address], 12/03/2022 11:09:28 12/04/19 23 12/03/2022 COMP METAB OLIC PANEL alk phosphatase 128 U/L 46-116 high Not Available [facility] ([facility]) [address] [facility], [place], [address], 12/03/2022 11:09:28 02/23/20 23 02/22/2023 GLUCO SE POINT OF CARE note See Note Order ing Provi su: Corey phillips MD Not Available [address] , [place], [address], 02/22/2023 07:06:54 02/23/20 23 02/22/2023 GLUCO SE POINT OF CARE glucose point of care 134 mg/dL 70-99 high Not Available [address] , [place], [address], 02/22/2023 07:06:54 02/23/20 23 02/22/2023 GLUCO SE POINT OF CARE performing lab see note [facility] [address] [place] [address] Not Available [facility] [address] [place], [address], 02/22/2023 07:06:54 Result Notes None recorded. 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 2022 Wisconsin Beardswor th [place], [place] [facility] [place] 3 13:11:07 Myofascial pain 678694507 Active 2022 [place] Beardswor th [place], [place] [facility] [place] 3 13:11:07 Lumbar spondylosis 848241233 Active 2022 [place] Beardswor th [place], [place] [facility] [place] 3 13:11:07 Neurogenic claudicatio n 774947281 Active 2022 [place] Beardswor th [place] [facility] [place] 3 13:11:07 Lumbar radiculitis 7892536244243 9104 Active 2022 [place] Beardswor th [place], [place] [facility] [place] 3 13:11:07 Notes:Some problems listed i n Documents: #[id number], #[id number] could not be added to this patient's chart. Please review these documents and add these problems to the patient's chart manually as needed. Problem Notes None recorded. Procedures Surgical History Date Name Laterality Status Provider Name and Address Organization Details Recorded Time Back Surgery completed Sharonda Kulkarnikins [place] [facility] [place] 07/22/2022 08:53:41 cardiac catheterization completed Sharonda Kulkarnikins [place] [facility] [place] 07/22/2022 08:54:27 [facility] [place] [facility] [place] 07/22/2022 08:54:44 extraction of cataract completed [facility] 07/22/2022 08:54:55 operation on prostate completed [facility] 07/22/2022 08:55:05 abdominal aortogram completed [facility] 07/22/2022 08:55:26 total replacement of hip completed [facility] 07/22/2022 08:55:52 Imaging Results None recorded. Procedure Notes None recorded. Medical Equipment None Reported. Allergies No known drug allergies Medications Name Sig Start Date Stop Date Status Note LastModified by Organization Details LastModified Time cyclobenzap rine 10 mg tablet Take 1 tablet 3 times a day by oral route. 08/09 completed Not Available Not Available Not Available atorvastati n 40 mg tablet Take 1 tablet every day by oral route as directed. active Not Available Not Available No t Available metformin 500 mg tablet active Not Available Not Available Not Available hydrocodone 5 mg-acetamin ophen 325 mg tablet 04/23 completed Not Available Not Available Not Available clopidogrel 75 mg tablet active Not Available Not Available Not Available ciprofloxac in 500 mg tablet 08/09 completed Not Available Not Available Not Available amitriptyli ne 50 mg tablet active Not Available Not Available Not Available bisoprolol fumarate 10 mg tablet Take 1 tablet every day by oral route as directed for 30 days. active Not Available Not Available No t Available amitriptyli ne 25 mg tablet Take 1 tablet every day by oral route as needed for 30 days. 12/24 completed Not Available Not Available Not Available tamsulosin 0.4 mg capsule active Not Available Not Available Not Available amlodipine 10 mg tablet active Not Available Not Available Not Available cephalexin 500 mg capsule 04/23 completed Not Available Not Available Not Available pantoprazol e 40 mg tablet,maddie yed release Take 1 tablet every day by oral route as directed for 30 days. active Not Available Not Available No t Available allopurinol 300 mg tablet Take 1 tablet every day by oral route as directed for 30 days. active Not Available Not Available No t Available mupirocin 2 % topical ointment APPLY A SMALL AMOUNT TOPICALLY WITH A Q-TIP TO JUST INSIDE EACH NOSTRIL, MORNING AND EVENING FOR 5 DAYS PRIOR TO PROCEDURE 12/24 completed Not Available Not Available Not Available diazepam 10 mg tablet 04/23 completed Not Available Not Available Not Available levofloxaci n 500 mg tablet active Not Available Not Available Not Available losartan 100 mg tablet Take 1 tablet every day by oral route as directed for 30 days. active Not Available Not Available No t Available chlorhexidi ne gluconate 4 % topical liquid Apply 1 applicati on and wash thoroughl y for five minutes, paying special attention to the area(s) where your surgery will be performed , night before and morning of surgery 12/24 completed Not Available Not Available Not Available fenofibrate 160 mg tablet active Not Available Not Available Not Available clopidogrel 12/03 completed Not Available Not Available Not Available amlodipine 12/03 completed Not Available Not Available Not Available diclofenac 1 % topical gel 08/09 completed Not Available Not Available Not Available Suprep Bowel Prep Kit 17.5 gram-3.13 gram-1.6 gram oral solution take as directed per office instructi ons 02/24 completed Not Available Not Available Not Available Vitals Date Recorded Body weight Body temperature Oxygen saturation Oxygen saturation in Arterial blood by Pulse oximetry Heart rate Systolic And Diastolic Provider Name and Address Organization Details Last Updated DateTime 3 92550.4 g 97.9 [degF] 94 % 94 % 74 /min 153/68 mm[Hg] [facility] [place] 3 10:47:30 Date Recorded Body weight Body temperature Oxygen saturation Oxygen saturation in Arterial blood by Pulse oximetry Heart rate Systolic And Diastolic Provider Name and Address Organization Details Last Updated DateTime 3 49356.5 8 g 97.3 [degF] 95 % 95 % 75 /min 125/66 mm[Hg] [facility] & [place] 3 09:24:56 Date Recorded Body weight Body temperature Oxygen saturation Oxygen saturation in Arterial blood by Pulse oximetry Heart rate Systolic And Diastolic Provider Name and Address Organization Details Last Updated DateTime 3 09994.4 9 g 96.8 [degF] 95 % 95 % 64 /min 122/60 mm[Hg] [facility] & [place] 3 09:23:19 Date Recorded Body weight Body temperature Oxygen saturation Oxygen saturation in Arterial blood by Pulse oximetry Heart rate Systolic And Diastolic Provider Name and Address Organization Details Last Updated DateTime 3 84477.3 9 g 97.8 [degF] 98 % 98 % 64 /min 156/77 mm[Hg] [facility] & [place] 3 13:10:16 Date Recorded Body weight Body temperature Oxygen saturation Oxygen saturation in Arterial blood by Pulse oximetry Heart rate Systolic And Diastolic Provider Name and Address Organization Details Last Updated DateTime 4 757587. 22 g 97 [degF] 95 % 95 % 74 /min 133/60 mm[Hg] [facility] & [place] 4 11:18:35 Social History None recorded. Functional Status None recorded. Mental Status None recorded. Family History Relationship Description Onset Age of this Age Resolved Age Notes LastModified by Organization Details LastModified Time Mother Heart disease [email or web address] Not available 07/22 08:56:14 Mother Diabetes mellitus Not available 12/22 09:14:16 Mother Hypertensive disorder [email or web address] Not available 07/22 08:56:39 Mother Malignant neoplastic disease [email or web address] Not available 12/22 09:14:16 Father Hypertensive disorder [email or web address] Not available 07/22 08:56:39 Father Cerebrovascu lar accident [email or web address] Not available 08:57:08 Father Myocardial infarction [email or web address] Not available 06/2022 08:57:16 Father Coronary arterioscler osis [email or web address] Not available 12/22 09:14:16 Father Father [email or web address] Not available 12/22 09:14:16 Medical History Condition Response Coronary Artery Disease N Gout N None N Hernia N Head Trauma/Injury N Depression N COPD N Anxiety Disorder N Arthritis Y Acid Reflux (GERD) N Cancer N Stroke N Back Injury N High Cholesterol Y Liver Disease N Headaches N Fibromyalgia N Kidney Disease Y Thyroid Problems N Anemia N Ulcers N Heart Attack (PR) N Diabetes N Bleeding Disorder N Tuberculosis N AIDS/HIV N Asthma N Substance Abuse N Hepatitis N Heart Disease N Hypertension Y Osteoporosis N Past Encounters Encounter ID Performer Location Encounter Start Date Encounter Closed Date Diagnosis/Indication Diagnosis SNOMED-CT Code Diagnosis ICD10 Code Diagnosis Note [id number] Rodríguez Ochoa MD [facility] [address] [address] 07/26/2022 14:10:22 07/26/2022 16:36:02 Post-laminectomy syndrome 26427024 M96.1 Myofascial pain 63207489 9 M79.10 Lumbar spondylosis 32426 0009 M47.816 Neurogenic claudication 156778818 M48.062 Lumbar radiculitis 35059 39520 9278949 M54.16 [id number] WARREN GRACE PA-C [facility] [address] [place] [address] 08/09/2022 10:02:14 08/09/2022 11:34:02 Post-laminectomy syndrome 56221507 M96.1 Myofascial pain 34456838 9 M79.10 Lumbar spondylosis 44955 0009 M47.816 Neurogenic claudication 842158132 M48.062 Lumbar radiculitis 09313 05623 3406862 M54.16 [id number] Rodríguez Ochoa MD [facility] [address] [address] 10/07/2022 10:11:17 10/07/2022 11:40:26 Post-laminectomy syndrome 99434466 M96.1 Myofascial pain 09872872 9 M79.10 Lumbar spondylosis 42121 0009 M47.816 Neurogenic claudication 734488799 M48.062 Lumbar radiculitis 64021 64636 9079794 M54.16 [id number] WARREN GRACE PA-C [facility] [address] [address] 12/03/2022 09:22:11 12/03/2022 10:06:58 Post-laminectomy syndrome 97020009 M96.1 Myofascial pain 92455777 9 M79.10 Lumbar spondylosis 39402 0009 M47.816 Neurogenic claudication 261265943 M48.062 Lumbar radiculitis 56769 25985 3032134 M54.16 [id number] Rodríguez Ochoa MD [facility] [address] [address] 12/15/2022 10:19:32 12/15/2022 11:42:12 Post-laminectomy syndrome 14887497 M96.1 Myofascial pain 30530122 9 M79.10 Lumbar spondylosis 00058 0009 M47.816 Neurogenic claudication 451169591 M48.062 Lumbar radiculitis 67277 48953 9385884 M54.16 [id number] Rodríguez Ochoa MD [facility] [address] [address] 12/24/2022 09:05:20 12/24/2022 09:43:29 Post-laminectomy syndrome 46800668 M96.1 Myofascial pain 08732815 9 M79.10 Lumbar spondylosis 83886 0009 M47.816 Neurogenic claudication 000083458 M48.062 Lumbar radiculitis 64547 02549 3847745 M54.16 [id number] WARREN GRACE PA-C [facility] [address] [address] 01/14/2023 09:14:11 01/14/2023 10:23:11 Post-laminectomy syndrome 74189497 M96.1 Myofascial pain 61501291 9 M79.10 Lumbar spondylosis 14368 0009 M47.816 Neurogenic claudication 486235459 M48.062 Lumbar radiculitis 35326 76563 5401654 M54.16 [id number] Rodríguez Ochoa MD [facility] [address] [place] [address] [place] [address] 02/24/2023 12:53:11 02/24/2023 14:13:00 Post-laminectomy syndrome 95806222 M96.1 Myofascial pain 98449607 9 M79.10 Lumbar spondylosis 22050 0009 M47.816 Neurogenic claudication 901482083 M48.062 Lumbar radiculitis 95142 01867 5674017 M54.16 [id number] Rodríguez Ochoa MD [facility] [address] [place] [address] 04/23/2024 11:05:59 04/23/2024 12:03:54 Post-laminectomy syndrome 79407176 M96.1 - It appears that SCS therapy has been effective until recently. The patient has been experienci ng low back and bilateral hip pain that SCS is not covering.- An Verona martínez was present for education and to assist with reprogramm ing.- REPROGRAMM ING1. Enhance coverage of bilateral hip and low back.2. Ran diagnostic (all clear). Myofascial pain 49740827 9 M79.18 Lumbar spondylosis 10959 0009 M47.816 Lumbar radiculitis 93874 41601 7019625 M54.16 Bilateral sacroiliitis 1817817288 M46.1 - I think the mechanism of pain is rather complex due to an extensive surgical history, including a lumbar fusion at L4-S1, lumbar laminectom y at L2-L3, and bilateral RORO. I'm suspicious of underlying sacroiliit is, which I anticipate addressing in the near future. The goal is to optimize SCS therapy at this time.- If the patient's pain persists following SCS reprogramm ing, I will likely schedule a bilateral diagnostic SI joint injection. - I will follow up in 1 month to reassess pain. Health Concerns Section Related Observation LastModified by Organization Detai ls LastModified Time None Recorded Concern Status LastModified by Organization Details LastModified Time None Recorded Advance Directives Directive None Recorded Payers Insurance Date Sequence Insurance Name Policy Number Policy Varma Covered Member ID Varma Member ID Guarantor Name 05/28/2024 2 [employer] Jack Kendall [id number] Jack Kendall 05/28/2024 1 [place] Jack Kendall [id number] Jack Kendall Notes Date Note Type Note Provider Name and Address Organization Details Recorded Time 12/15/2022 text/html 67-year-old male with a 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 Leger. The patient presents to the clinic today 1 week S/P SCS implant for a post-op check. The patient reports experiencing significant improvement in pain and function similar to that of the trial period. The midline and gluteal incision sites are healing well. The patient denies post-op complications or signs of infection. 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 Leger. The patient presents to the clinic today 2 week S/P SCS implant for a post-op check. The patient reports experiencing significant improvement in pain and function similar to that of the trial period. The midline and gluteal incision sites are healing well. The patient denies post-op complications or signs of infection. JF PATEL [address] , [place], [address], [facility] & [place] 12/27/2022 09:07:36 01/14/2023 text/html The patient is a 67 year old male referred by Dr. Leger for low back and BLE pain. 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 The patient presents to the clinic today 1 month S/P SCS lead revision to follow up on pain. The patient states that SCS therapy is effective; however, he continues to complain of low back pain, which decreases function, thereby negatively affecting quality of life. Today the pain level is a 8/10. WARREN GRACE PA-C [address], [place], [address], [facility] & [place] 01/17/2023 10:22:11 02/24/2023 text/html The patient is a 67 year old male referred by Dr. Leger for low back and BLE pain. 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 The patient presents to the clinic today 2 month S/P SCS lead revision for post op check and reprogramming. The patient states that SCS therapy is effective; however, he continues to complain of low back pain, which decreases function, thereby negatively affecting quality of life. Today the pain level is a 5/10. JF PATEL [address], [place], [address], [facility] & [place] 02/25/2023 10:00:30 04/23/2024 text/html Mr. Kendall was referred by Dr. Leger for low back and BLE pain. The has a history of failed lumbar syndrome post lumbar fusion and lumbar surgery x3. The patient is post SCS implant x2 thoracic leads in 08/2020, with lead revision in 11/2022. The patient presents to the clinic today regarding his SCS. He states that he has been experiencing bilateral hip and low back pain that SCS therapy is no longer managing. The patient is inquiring about reprogramming today. Pain today is a 7/10. Rodríguez Ochoa MD [address], [place], [address], [facility] & [place] 04/25/2024 09:18:28
--- OUTSIDE RECORDS SUMMARY | 2024-11-22 11:02 | XMS_ITS | Data Portability ---
Author Organization [facility] ANDRÉS KhannaS WOODWARD CLOSED Address [address] [facility] [facility] [address] [place] [address] Care Team Providers Care Merchant Miller Name Role Phone CHRISTOPHER MORALES Primary Care Provider [phone] Assessment Encounter Date Assessment Date Assessment LastModified by Organization Details LastModified Time 05/28/2022 05/28/2022 Continue to monitor PSA. Urine for culture and sensitivity. [email or web address] Not available 05/31/2022 12:33:38 09/10/2022 09/10/2022 Closely monitor PSA trend. [email or web address] Not available 09/19/2022 12:30:33 03/11/2023 03/11/2023 PSA 0.67. Tamsulosin for management of lower urinary symptoms. [email or web address] Not available 03/21/2023 13:10:27 09/13/2023 09/13/2023 Monitor PSA trend. Tamsulosin for management of lower urinary symptoms. [email or web address] Not available 09/13/2023 12:36:37 03/14/2024 03/14/2024 Medical management of lower urinary symptoms with tamsulosin. Closely monitor PSA trend.. [email or web address] Not available 03/18/2024 11:57:01 Plan of Treatment Reminders Order Date Submit Date Provider Last Modified By Organization Details Last Modified Time Details Appointments None recorded. Lab urinalysis panel, auto 2023 024 [email or web address] 14 [facility], [address], [place], [address], 4 11:57:10 PSA, serum or plasma 2023 024 [email or web address] 14 [facility], [address], [place], [address], 4 11:57:11 PSA, serum or plasma 2023 024 [email or web address] [facility], [address], [place], [address], 4 16:35:41 PSA, serum or plasma 2022 023 [email or web address] 14 [facility], [address], [place], [address], 3 13:10:15 PSA, serum or plasma 2022 023 [email or web address] 14 [facility], [address], [place], [address], 3 12:30:48 urinalysis panel, auto 2022 023 [email or web address] 14 [facility], [address], [address], [place], [address], 3 12:30:48 urinalysis panel, auto 2022 023 [email or web address] 14 [facility], [address], [place], [address], 3 12:16:51 culture, urine 2022 023 [email or web address] 14 [facility], [address] [facility], [place], [address], 3 12:16:51 PSA, serum or plasma 2022 023 [email or web address] 14 [facility], [facility], [address], [address], [place], [address], 3 12:16:51 Referral None recorded. Procedures None recorded. Surgeries None recorded. Imaging None recorded. Medication Orders tamsulosin 0.4 mg capsule 2023 024 [facility] [id number], [address] [facility] , [place], [address], 4 12:27:54 tamsulosin 0.4 mg capsule 2023 024 [facility] [id number], [address] [facility], [place], [address], 4 11:58:12 tamsulosin 0.4 mg capsule 2022 023 [facility] [id number], [address] [place], [address], 3 13:10:49 Patient TargetsNo targets recorded. Patient Instructions Encounter Date Encounter Id Patient Instructions Last Modified By Organization Details Last Modified Time 05/28/2022 [id number] learning about healthy weight Not available 05/31/2022 12:16:51 Reason for Referral None Reported. Results Created Date Observation Date Name Description Value Unit Range Abnormal Flag Note LastModifiedBy Organization Detail LastModifiedTime 05/28/1905/28/2022 URINE CULTU RE results Sourc e: CCSEN Colle cted: 05/28 11:42 Site: Armond benny : 05/28 15:33 URINE CULTU RE FINAL 06/03 11:00 05/31 [facility] TE #1 COLON Y COUNT : 2,000 CFU/M L Proba ble Beta Strep tococ cus sp.; [place] tion In Progr ess. 06/03 See [place] te Resul t(s) Below [facility] AND SENSI TIVIT Y RESUL TS [place] te 01 Strep . agala ctiae (Grou p B) __ [place] te ORG# 01 ANTIB IOTIC S HALEY INT __ Dapto mycin <=0.5 S Levof loxac in <=1 S Linez olid <=1 S Penic illin <=0.0 3 S Vanco mycin 1 S Not Available [facility] [address] [place] [address], [place], [address], 06/03/2022 11:00:28 05/28/19 23 05/28/2022 PSA, serum or plasm a PSA 1.4 NG/mL 0.0 - 4.0 Not Available [facility] [address], [place], [address], 05/28/2022 10:19:15 05/28/19 23 05/28/2022 urina lysis panel , auto Unknown Analyte Clean Catch Not Available [facility] [address], [place], [address], 05/28/2022 10:58:14 05/28/19 23 05/28/2022 urina lysis panel , auto Unknown Analyte Yellow Not Available [facility] [address], [place], [address], 05/28/2022 10:58:14 05/28/19 23 05/28/2022 urina lysis panel , auto Unknown Analyte Slight ly Hazy Not Available [facility] [address], [place], [address], 05/28/2022 10:58:14 05/28/19 23 05/28/2022 urina lysis panel , auto Unknown Analyte 1.000 Not Available [facility] [address], [place], [address], 05/28/2022 10:58:14 05/28/19 23 05/28/2022 urina lysis panel , auto Unknown Analyte 1.003- 1.035 Not Available [facility] [address], [place], [address], 05/28/2022 10:58:14 05/28/19 23 05/28/2022 urina lysis panel , auto Unknown Analyte 6.0 Not Available [facility] [address], [place], [address], 05/28/2022 10:58:14 05/28/19 23 05/28/2022 urina lysis panel , auto Unknown Analyte 5.0-8. 0 Not Available [facility] [address], [place], [address], 05/28/2022 10:58:14 05/28/19 23 05/28/2022 urina lysis panel , auto Unknown Analyte 25 Jeffrey/ul Trace Not Available [facility] [address], [place], [address], 05/28/2022 10:58:14 05/28/19 23 05/28/2022 urina lysis panel , auto Unknown Analyte Negati ve Not Available [facility] [address], [place], [address], 05/28/2022 10:58:14 05/28/19 23 05/28/2022 urina lysis panel , auto Unknown Analyte Negati ve Not Available [facility] [address], [place], [address], 05/28/2022 10:58:14 05/28/19 23 05/28/2022 urina lysis panel , auto Unknown Analyte Negati ve Not Available [facility] [address], [place], [address], 05/28/2022 10:58:14 05/28/19 23 05/28/2022 urina lysis panel , auto Unknown Analyte Trace Not Available [facility] [address], [place], [address], 05/28/2022 10:58:14 05/28/19 23 05/28/2022 urina lysis panel , auto Unknown Analyte Negati ve Not Available [facility] [address], [place], [address], 05/28/2022 10:58:14 05/28/19 23 05/28/2022 urina lysis panel , auto Unknown Analyte Normal Not Available [facility] [address], [place], [address], 05/28/2022 10:58:14 05/28/19 23 05/28/2022 urina lysis panel , auto Unknown Analyte Normal Not Available [facility] [address], [place], [address], 05/28/2022 10:58:14 05/28/19 23 05/28/2022 urina lysis panel , auto Unknown Analyte Negati ve Not Available [facility] [address], [place], [address], 05/28/2022 10:58:14 05/28/19 23 05/28/2022 urina lysis panel , auto Unknown Analyte Negati ve Not Available [facility] [address], [place], [address], 05/28/2022 10:58:14 05/28/19 23 05/28/2022 urina lysis panel , auto Unknown Analyte Normal Not Available [facility] [address], [place], [address], 05/28/2022 10:58:14 05/28/19 23 05/28/2022 urina lysis panel , auto Unknown Analyte Normal 1 mg/dl Not Available [facility] [address], [place], [address], 05/28/2022 10:58:14 01/0605/28/2022 urina lysis panel , auto Unknown Analyte Negati ve Not Available [facility] [address], [place], [address], 05/28/2022 10:58:14 05/28/19 23 05/28/2022 urina lysis panel , auto Unknown Analyte Negati ve Not Available [facility] [address], [place], [address], 05/28/2022 10:58:14 05/28/19 23 05/28/2022 urina lysis panel , auto Unknown Analyte Negati ve Not Available [facility] [address], [place], [address], 05/28/2022 10:58:14 05/28/19 23 05/28/2022 urina lysis panel , auto Unknown Analyte Negati ve Not Available [facility] [address], [place], [address], 05/28/2022 10:58:14 09/11/19 23 09/10/2022 PSA, serum or plasm a PSA 1.1 NG/mL 0.0 - 4.0 Not Available [facility] [address], [place], [address], 09/10/2022 12:12:59 09/11/1909/10/2022 urina lysis panel , auto Unknown Analyte Clean Catch Not Available [facility] [address], [place], [address], 09/10/2022 12:28:42 09/11/1909/1009/10/2022 urina lysis panel , auto Unknown Analyte Yellow Not Available [facility] [address], [place], [address], 09/10/2022 12:28:42 09/11/19 23 09/10/2022 urina lysis panel , auto Unknown Analyte Clear Not Available [facility] [address], [place], [address], 09/10/2022 12:28:42 09/11/19 23 09/10/2022 urina lysis panel , auto Unknown Analyte 1.005 Not Available [facility] [address], [place], [address], 09/10/2022 12:28:42 09/11/19 23 09/10/2022 urina lysis panel , auto Unknown Analyte 1.003- 1.035 Not Available [facility] [address], [place], [address], 09/10/2022 12:28:42 09/11/19 23 09/10/2022 urina lysis panel , auto Unknown Analyte 6.5 Not Available [facility] [address], [place], [address], 09/10/2022 12:28:42 09/11/19 23 09/10/2022 urina lysis panel , auto Unknown Analyte 5.0-8. 0 Not Available [facility] [address], [place], [address], 09/10/2022 12:28:42 09/11/19 23 09/10/2022 urina lysis panel , auto Unknown Analyte 25 Jeffrey/ul Trace Not Available [facility] [address], [place], [address], 09/10/2022 12:28:42 09/11/19 23 09/10/2022 urina lysis panel , auto Unknown Analyte Negati ve Not Available [facility] [address], [place], [address], 09/10/2022 12:28:42 09/11/19 23 09/10/2022 urina lysis panel , auto Unknown Analyte Negati ve Not Available [facility] [address], [place], [address], 09/10/2022 12:28:42 09/11/19 23 09/10/2022 urina lysis panel , auto Unknown Analyte Negati ve Not Available [facility] [address], [place], [address], 09/10/2022 12:28:42 09/11/19 23 09/10/2022 urina lysis panel , auto Unknown Analyte Trace Not Available [facility] [address], [place], [address], 09/10/2022 12:28:42 09/11/19 23 09/10/2022 urina lysis panel , auto Unknown Analyte Negati ve Not Available [facility] [address], [place], [address], 09/10/2022 12:28:42 09/11/19 23 09/10/2022 urina lysis panel , auto Unknown Analyte Normal Not Available [facility] [address], [place], [address], 09/10/2022 12:28:42 09/11/19 23 09/10/2022 urina lysis panel , auto Unknown Analyte Normal Not Available [facility] [address], [place], [address], 09/10/2022 12:28:42 09/11/19 23 09/10/2022 urina lysis panel , auto Unknown Analyte Negati ve Not Available [facility] [address], [place], [address], 09/10/2022 12:28:42 09/11/19 23 09/10/2022 urina lysis panel , auto Unknown Analyte Negati ve Not Available [facility] [address], [place], [address], 09/10/2022 12:28:42 09/11/19 23 09/10/2022 urina lysis panel , auto Unknown Analyte Normal Not Available [facility] [address], [place], [address], 09/10/2022 12:28:42 09/11/19 23 09/10/2022 urina lysis panel , auto Unknown Analyte Normal 1 mg/dl Not Available [facility] [address], [place], [address], 09/10/2022 12:28:42 09/11/19 23 09/10/2022 urina lysis panel , auto Unknown Analyte Negati ve Not Available [facility] [address], [place], [address], 09/10/2022 12:28:42 09/11/19 23 09/10/2022 urina lysis panel , auto Unknown Analyte Negati ve Not Available [facility] [address], [place], [address], 09/10/2022 12:28:42 09/11/19 23 09/10/2022 urina lysis panel , auto Unknown Analyte Negati ve Not Available [facility] [address], [place], [address], 09/10/2022 12:28:42 09/11/19 23 09/10/2022 urina lysis panel , auto Unknown Analyte Negati ve Not Available [facility] [address], [place], [address], 09/10/2022 12:28:42 03/11/20 23 03/11/2023 PSA, serum or plasm a PSA 0.67 NG/mL 0.0 - 4.0 Not Available [facility] [address], [place], [address], 03/11/2023 12:26:18 09/13/19 24 09/13/2023 PSA, serum or plasm a PSA 0.48 NG/mL 0.0 - 4.0 Not Available [facility] [address], [place], [address], 09/13/2023 10:43:00 03/14/20 24 03/14/2024 PSA, serum or plasm a PSA 0.26 NG/mL 0.0 - 4.0 Not Available [facility] [address], [place], [address], 03/14/2024 14:11:43 03/14/2003/14/2024 urina lysis panel , auto Unknown Analyte Clean Catch Not Available [facility] [address], [place], [address], 03/14/2024 13:17:55 03/14/2003/14/2024 urina lysis panel , auto Unknown Analyte Yellow Not Available [facility] [address], [place], [address], 03/14/2024 13:17:55 03/14/2003/14/2024 urina lysis panel , auto Unknown Analyte Clear Not Available [facility] [address], [place], [address], 03/14/2024 13:17:55 03/14/2003/14/2024 urina lysis panel , auto Unknown Analyte 1.000 Not Available [facility] [address], [place], [address], 03/14/2024 13:17:55 03/14/2003/14/2024 urina lysis panel , auto Unknown Analyte 1.003- 1.035 Not Available [facility] [address], [place], [address], 03/14/2024 13:17:55 03/14/2003/14/2024 urina lysis panel , auto Unknown Analyte 7.0 Not Available [facility] [address], [place], [address], 03/14/2024 13:17:55 03/14/2003/14/2024 urina lysis panel , auto Unknown Analyte 5.0-8. 0 Not Available [facility] [address], [place], [address], 03/14/2024 13:17:55 03/14/2003/14/2024 urina lysis panel , auto Unknown Analyte Negati ve Not Available [facility] [address], [place], [address], 03/14/2024 13:17:55 03/14/2003/14/2024 urina lysis panel , auto Unknown Analyte Negati ve Not Available [facility] [address], [place], [address], 03/14/2024 13:17:55 03/14/2003/14/2024 urina lysis panel , auto Unknown Analyte Negati ve Not Available [facility] [address], [place], [address], 03/14/2024 13:17:55 03/14/2003/14/2024 urina lysis panel , auto Unknown Analyte Negati ve Not Available [facility] [address], [place], [address], 03/14/2024 13:17:55 03/14/2003/14/2024 urina lysis panel , auto Unknown Analyte Negati ve Not Available [facility] [address], [place], [address], 03/14/2024 13:17:55 03/14/2003/14/2024 urina lysis panel , auto Unknown Analyte Negati ve Not Available [facility] [address], [place], [address], 03/14/2024 13:17:55 03/14/2003/14/2024 urina lysis panel , auto Unknown Analyte Normal Not Available [facility] [address], [place], [address], 03/14/2024 13:17:55 03/14/2003/14/2024 urina lysis panel , auto Unknown Analyte Normal Not Available [facility] [address], [place], [address], 03/14/2024 13:17:55 03/14/2003/14/2024 urina lysis panel , auto Unknown Analyte Negati ve Not Available [facility] [address], [place], [address], 03/14/2024 13:17:55 03/14/2003/14/2024 urina lysis panel , auto Unknown Analyte Negati ve Not Available [facility] [address], [place], [address], 03/14/2024 13:17:55 03/14/2003/14/2024 urina lysis panel , auto Unknown Analyte Normal Not Available [facility] [address], [place], [address], 03/14/2024 13:17:55 03/14/2003/14/2024 urina lysis panel , auto Unknown Analyte Normal 1 mg/dl Not Available [facility] [address], [place], [address], 03/14/2024 13:17:55 03/14/2003/14/2024 urina lysis panel , auto Unknown Analyte Negati ve Not Available [facility] [address], [place], [address], 03/14/2024 13:17:55 03/14/2003/14/2024 urina lysis panel , auto Unknown Analyte Negati ve Not Available [facility] [address], [place], [address], 03/14/2024 13:17:55 03/14/2003/14/2024 urina lysis panel , auto Unknown Analyte Negati ve Not Available [facility] [address], [place], [address], 03/14/2024 13:17:55 03/14/2003/14/2024 urina lysis panel , auto Unknown Analyte Negati ve Not Available [facility] [address], [place], [address], 03/14/2024 13:17:55 Result Notes None recorded. Problems No Known Problems Procedures Surgical History Date Name Laterality Status Provider Name and Address Organization Details Recorded Time biopsy of prostate completed Artie Mcqueen [facility] 11/25/2021 08:34:56 Imaging Results None recorded. Procedure Notes None recorded. Medical Equipment None Reported. Allergies No known drug allergies Medications Name Sig Start Date Stop Date Status Note LastModified by Organization Details LastModified Time atorvastatin 40 mg tablet active Not Available Not Available Not Available metformin 500 mg tablet active Not Available Not Available Not Available hydrocodone 5 mg-acetamino phen 325 mg tablet 03/14 completed Not Available Not Available Not Available clopidogrel 75 mg tablet active Not Available Not Available Not Available ciprofloxaci n 500 mg tablet Take 1 tablet every 12 hours by oral route for 3 days. 03/14 completed Not Available Not Available Not Available amitriptylin e 50 mg tablet active Not Available Not Available Not Available bisoprolol fumarate 10 mg tablet active Not Available Not Available No t Available tamsulosin 0.4 mg capsule Take 1 capsule every day by oral route for 90 days. 2023 active Not Available Not Available Not Avai lable amlodipine 10 mg tablet active Not Available Not Available Not Available cephalexin 500 mg capsule active Not Available Not Available Not Available pantoprazole 40 mg tablet,delay ed release active Not Available Not Available N ot Available allopurinol 300 mg tablet active Not Available Not Available Not Available mupirocin 2 % topical ointment active Not Available Not Available Not Available diazepam 10 mg tablet active Not Available Not Available No t Available levofloxacin 500 mg tablet Take 1 tablet every 24 hours by oral route for 7 days. 03/14 completed Not Available Not Available Not Available losartan 100 mg tablet active Not Available Not Available No t Available Valium active Not Available Not Availa ble Not Available fenofibrate active Not Available Not A vailable Not Available diclofenac 1 % topical gel active Not Available Not Available Not Available Vitals Date Recorded Body height Body mass index (BMI) Body weight Provider Name and Address Organization Details Last Updated DateTime 05/28/2022 177.8 cm 31.6 kg/m2 43220.32 g Lichaearl Toroson [facility] 05/28/2022 09:50:50 Date Recorded Body height Body mass index (BMI) Body weight Provider Name and Address Organization Details Last Updated DateTime 09/10/2022 177.8 cm 31 kg/m2 16427.95 g Lichaearl Toroson [facility] 09/10/2022 12:12:49 Date Recorded Body height Body mass index (BMI) Body weight Provider Name and Address Organization Details Last Updated DateTime 09/13/2023 177.8 cm 32.4 kg/m2 616925.88 g Kyramarcia Manrique [facility] 09/13/2023 14:54:41 Date Recorded Body height Body mass index (BMI) Body weight Provider Name and Address Organization Details Last Updated DateTime 03/11/2023 177.8 cm 31 kg/m2 48540.95 g Anaevert ParedesLester [facility] 03/11/2023 12:23:47 Date Recorded Body height Body mass index (BMI) Body weight Provider Name and Address Organization Details Last Updated DateTime 03/14/2024 177.8 cm 28.7 kg/m2 51699.47 g Kyra Burton [facility] 03/14/2024 12:25:36 Social History Question Answer Notes LastModified by Gratafy Details LastModified Time Tobacco Smoking Status [facility]16[facility]21 10:53:51 What Was The Date Of Your Most Recent Tobacco Screening? 11/25/2021 [email or web address] Information not available 11/25/2021 What Is Your Relationship Status? Information not available 10/16/2021 Sex: Male Functional Status Question Answer Note LastModified by Gratafy Details LastModified Time What is your level of alcohol consumption? Occasional Information not available 10/16/2021 Mental Status None recorded. Family History Relationship Description Onset Age of this Age Resolved Age Notes LastModified by Organization Details LastModified Time Father No current problems or disability [email or web address] Not available 10/16 10:53:38 Mother No current problems or disability [email or web address] Not available 10/16 10:53:38 Medical History Condition Response Hypertension Y High Cholesterol Y Past Encounters Encounter ID Performer Location Encounter Start Date Encounter Closed Date Diagnosis/Indication Diagnosis SNOMED-CT Code Diagnosis ICD10 Code Diagnosis Note [id number] COBY PATEL MD [facility] [address] [place] [address] 10/16/2021 10:25:29 10/16/2021 11:01:55 Prostate specific antigen above reference range 392708459 R97.20 [id number] COBY PATEL MD SURGERY SCHEDULE [address] [place] [address] 11/09/2021 08:06:24 11/09/2021 08:08:10 [id number] COBY PATEL MD [facility] [address] [address] 11/12/2021 14:32:45 11/12/2021 16:05:07 Malignant neoplasm of prostate 115978254 C61 Prostate s pecific antigen above reference range 636359589 R97.20 [id number] MOE ORELLANA MD [address] [place] [phone] 11/25/2021 08:23:19 12/07/2021 07:44:33 Malignant neoplasm of prostate 615095385 C61 Prostate s pecific antigen above reference range 623662322 R97.20 [id number] MOE ORELLANA MD SURGERY SCHEDULE [address] [place] [address] 01/19/2022 11:32:06 01/19/2022 11:32:44 [id number] MOE ORELLANA MD [facility] [address] 05/28/2022 09:45:17 05/28/2022 10:31:15 Malignant neoplasm of prostate 687645400 C61 Prostate s pecific antigen above reference range 236033361 R97.20 Urinary tr act infectious disease 39767572 N39.0 [id number] MOE ORELLANA [facility] [address] [address] 09/10/2022 10:10:01 09/10/2022 10:51:38 Malignant neoplasm of prostate 550870486 C61 Prostate s pecific antigen above reference range 636263610 R97.20 Nocturia 999897267 R35.1 [id number] MOE ORELLANA MD [facility] [address] [place] [address] 03/11/2023 11:10:48 03/11/2023 11:38:34 Malignant neoplasm of prostate 664370890 C61 Prostate s pecific antigen above reference range 720732078 R97.20 Nocturia 348608268 R35.1 [id number] [facility] [address] [facility] [address] [place] [address] 09/13/2023 10:56:50 09/13/2023 12:00:28 Malignant neoplasm of prostate 744331394 C61 Prostate s pecific antigen above reference range 317931475 R97.20 Nocturia 664342007 R35.1 [id number] MOE ORELLANA MD [facility] [address] [facility] [address] [address] [place] [address] 03/14/2024 11:00:15 03/20/2024 17:50:55 Nocturia 311312605 R35.1 Malignant neoplasm of prostate 989262775 C61 Health Concerns Section Related Observation LastModified by Organization Detai ls LastModified Time None Recorded Concern Status LastModified by Organization Details LastModified Time None Recorded Advance Directives Directive None Recorded Payers Insurance Date Sequence Insurance Name Policy Number Policy Varma Covered Member ID Varma Member ID Guarantor Name 03/11/2024 1 [place] Jack Kendall [id number] Jack Kendall 03/20/2024 2 [employer] (MEDICARE SUPPLEMENT) Jack Kendall [id number] Jack Kendall Notes Date Note Type Note Provider Name and Address Organization Details Recorded Time 05/28/2022 text/html 66-year-old male in the office for follow-up evaluation and for discussion of [place] 3+4 adenocarcinoma of the left prostate. Biopsy performed by Dr. Patel for PSA of 6.8. Patient has history of several abdominal surgeries including femoral-femoral bypass grafting. He has history of nephrectomy. He has completed radiation therapy. No hesitancy. No urgency. Daytime frequency 2-3 times. Nocturia 1-2 times. No gross hematuria. No dysuria MOE ORELLANA MD [address] [place] [address], [phone], [facility] 05/31/2022 12:33:54 09/10/2022 text/html 66-year-old male in the office for follow-up evaluation and for discussion of [place] 3+4 adenocarcinoma of the left prostate. Biopsy performed by Dr. Patel for PSA of 6.8. Patient has history of several abdominal surgeries including femoral-femoral bypass grafting. He has history of nephrectomy. He has completed radiation therapy. No hesitancy. No urgency. Daytime frequency 2-3 times. Nocturia 1-2 times. No gross hematuria. No dysuria. PSA has decreased. MOE ORELLANA MD [address] [place] [address], [phone], [facility] 09/19/2022 12:31:06 03/11/2023 text/html 67-year-old male in the office for follow-up evaluation and for discussion of [place] 3+4 adenocarcinoma of the left prostate. Biopsy performed by Dr. Patel for PSA of 6.8. Patient has history of several abdominal surgeries including femoral-femoral bypass grafting. He has history of nephrectomy. He has completed radiation therapy. No hesitancy. No urgency. Daytime frequency 2-3 times. Nocturia 1-2 times. No gross hematuria. No dysuria. MOE ORELLANA MD [address] [place] [address], [phone], [facility] 03/21/2023 13:11:28 09/13/2023 text/html 67-year-old male in the office for follow-up evaluation and for discussion of [place] 3+4 adenocarcinoma of the left prostate. Biopsy performed by Dr. Patel for PSA of 6.8. Patient has history of several abdominal surgeries including femoral-femoral bypass grafting. He has history of nephrectomy. He has completed radiation therapy. No hesitancy. No urgency. Daytime frequency every hour. Nocturia 1 time, 4-5 times secondary to a beer before bed. No gross hematuria. No dysuria. He is currently taking tamsulosin for lower urinary symptoms. MOE ORELLANA MD [address] [place] [address], [phone], [facility] 09/15/2023 10:46:07 03/14/2024 text/html 68-year-old male in the office for follow-up evaluation and for discussion of [place] 3+4 adenocarcinoma of the left prostate. H/o several abdominal surgeries including femoral-femoral bypass grafting, nephrectomy. He has completed radiation therapy. No hesitancy. No urgency. Daytime frequency every hour. Nocturia 1 time, 4-5 times secondary to a beer before bed. No gross hematuria. No dysuria. He is currently taking tamsulosin for lower urinary symptoms. PSA trend:09/13/2023- 0.48 MOE ORELLANA MD [address] [place], [phone], [facility] 03/18/2024 11:57:28
--- OUTSIDE RECORDS SUMMARY | 2024-11-22 11:03 | XMS_ITS | Data Portability ---
Author Organization [facility] Address [address] [place] [address] Care Team Providers Care Sales Office Manager Name Role Phone YOANNA PACE Director Fraud Assessment No assessment recorded. Plan of Treatment Reminders Order Date Submit Date Provider Last Modified By Organization Details Last Modified Time Details Appointments Follow Up 2024 11:30A M Jim Sierra MD Not available Not available Not available Lab HbA1c (hemoglob in A1c), blood 2024 025 [facility], [address] [place] [address], [id number], 08/09/2024 11:13:15 lipid panel, serum 2024 025 [facility], [address] [place] [address], [address], 08/09/2024 11:13:14 CMP, serum or plasma 2024 025 [facility], [address] [place] [address], [address], 08/09/2024 11:13:13 microalbu min, urine 2024 025 [facility], [address] [place] [address], [address], 08/09/2024 11:13:16 HbA1c (hemoglob in A1c), blood 2023 024 [facility], [place], [address], 02/09/2024 06:23:05 lipid panel, serum 2023 024 [facility], [place], [address], 02/09/2024 06:23:05 CMP, serum or plasma 2023 024 [facility], [place], [address], 02/09/2024 06:23:04 CBC w/ auto diff 2023 024 [facility], [place], [address], 02/09/2024 06:23:03 HbA1c (hemoglob in A1c), blood 2023 024 [facility], [place], [address], 07/16/2023 04:10:35 lipid panel, serum 2023 024 [facility], [place], [address], 07/16/2023 04:10:34 CMP, serum or plasma 2023 024 [facility], [place], [address], 07/16/2023 04:10:33 CBC w/ auto diff 2023 024 [facility], [place], [address], 07/16/2023 04:10:32 microalbu min, urine 2023 024 [facility], [place], [address], 07/16/2023 04:10:36 Referral None recorded. Procedures None recorded. Surgeries None recorded. Imaging photo, eye, fundus 2023 024 [facility], [address] , [place], [address], 02/09/2024 08:49:20 Medication Orders pantopraz ole 40 mg tablet,de layed release 2024 025 [facility] [id number], [address] , [place], [address], 08/08/2024 13:31:07 allopurin ol 300 mg tablet 2024 025 [facility] [id number], [address] , [place], [address], 08/08/2024 13:31:04 amitripty line 50 mg tablet 2024 025 [id number], [address] , [place], [address], 08/08/2024 13:33:31 allopurin ol 300 mg tablet 2023 024 [facility] [id number], [address] , [place], [address], 05/04/2024 09:46:14 diclofena c 1 % topical gel 2023 024 [facility] [id number], [address] , [place], [address], 05/04/2024 09:46:37 clopidogr el 75 mg tablet 2023 024 [facility] [id number], [address] , [place], [address], 05/04/2024 09:46:20 amitripty line 50 mg tablet 2023 024 [facility] [id number], [address] , [place], [address], 05/04/2024 09:46:27 metformin 500 mg tablet 2023 024 [facility] [id number], [address] , [place], [address], 05/04/2024 09:46:24 atorvasta tin 40 mg tablet 2023 024 [facility] [id number], [address] , [place], [address], 05/04/2024 09:46:42 fenofibra te 160 mg tablet 2023 024 [facility] [id number], [address] , [place], [address], 05/04/2024 09:46:12 pantopraz ole 40 mg tablet,de layed release 2023 024 [facility] [id number], [address] , [place], [address], 05/04/2024 09:46:34 amlodipin e 10 mg tablet 2023 024 [facility] [id number], [address] , [place], [address], 05/04/2024 09:46:31 bisoprolo l fumarate 10 mg tablet 2023 024 [facility] [id number], [address] , [place], [address], 05/04/2024 09:46:32 losartan 100 mg tablet 2023 024 [facility] [id number], [address] , [place], [address], 05/04/2024 09:46:17 diclofena c 1 % topical gel 2023 024 [facility] [id number], [address] [place] [address] , [place], [address], 02/08/2024 13:12:52 Patient TargetsNo targets recorded. Patient Instructions Encounter Date Encounter Id Patient Instructions Last Modified By Organization Details Last Modified Time 07/15/2023 [id number] learning about type 2 diabetes [email or web address] Not available 07/15/2023 12:06:08 type 2 diabetes: care instructions [email or web address] Not available 07/15/2023 12:06:08 02/08/2024 [id number] learning about type 2 diabetes tgrosser Not available 02/08/2024 13:11:31 type 2 diabetes: care instructions tgrosser Not available 02/08/2024 13:11:32 diabetic foot exam* tgrosser Not available 02/08/2024 13:11:32 body mass index: care instructions tgrosser Not available 02/08/2024 13:12:46 learning about healthy weight tgrosser Not available 02/08/2024 13:12:46 04/11/2024 [id number] Patient is takin g Plavix, a blood thinner. It is recommend that he be off of this medication prior to these procedures. He will get the prescribing providers clearance to temporarily hold on the plavix. [email or web address] Not available 04/11/2024 11:38:21 05/04/2024 [id number] body mass index: care instructions tgrosser Not available 05/04/2024 09:46:05 learning about healthy weight tgrosser Not available 05/04/2024 09:46:05 08/08/2024 [id number] learning about type 2 diabetes tgrosser Not available 08/08/2024 13:30:58 type 2 diabetes: care instructions tgrosser Not available 08/08/2024 13:30:58 diabetic foot exam* tgrosser Not available 08/08/2024 13:30:58 high cholesterol : care instructions tgrosser Not available 08/08/2024 13:30:58 carotid stenosis : care instructions tgrosser Not available 08/08/2024 13:30:58 high blood pressure: care instructions tgrosser Not available 08/08/2024 13:30:58 learning about high blood pressure tgrosser Not available 08/08/2024 13:30:58 body mass index: care instructions tgrosser Not available 08/08/2024 13:34:11 learning about healthy weight tgrosser Not available 08/08/2024 13:34:11 Reason for Referral None Reported. Results Created Date Observation Date Name Description Value Unit Range Abnormal Flag Note LastModifiedBy Organization Detail LastModifiedTime 07/15/19 24 07/16/2023 CBC WITH DIFFE RENTI AL/PL ATELE T WBC 12.0 x10e3 /uL 3.4-10 .8 above high normal Not Available [facility] ([facility]) [address] [place], [address], 07/16/2023 04:10:32 07/15/1907/16/2023 CBC WITH DIFFE RENTI AL/PL ATELE T RBC 5.13 x10e6 /uL 4.14-5 .80 Not Available [facility] ([facility]) [address] [place], [address], 07/16/2023 04:10:32 07/15/1907/16/2023 CBC WITH DIFFE RENTI AL/PL ATELE T hemoglobin 14.9 g/dL 13.0-1 7.7 Not Available [facility] ([facility]) [address] [place], [address], 07/16/2023 04:10:32 07/15/1907/16/2023 CBC WITH DIFFE RENTI AL/PL ATELE T hematocrit 45.0 % 37.5-5 1.0 Not Available [facility] ([facility]) [address] [place], [address], 07/16/2023 04:10:32 07/15/1907/16/2023 CBC WITH DIFFE RENTI AL/PL ATELE T MCV 88 fL 79-97 Not Available [facility] ([facility]) [address] [place], [address], 07/16/2023 04:10:32 07/15/19 24 07/16/2023 CBC WITH DIFFE RENTI AL/PL ATELE T MCH 29.0 pg 26.6-3 3.0 Not Available [facility] ([facility]) [address] [facility], [place], [address], 07/16/2023 04:10:32 07/15/19 24 07/16/2023 CBC WITH DIFFE RENTI AL/PL ATELE T MCHC 33.1 g/dL 31.5-3 5.7 Not Available [facility] ([facility]) [address] [facility], [place], [address], 07/16/2023 04:10:32 07/15/19 24 07/16/2023 CBC WITH DIFFE RENTI AL/PL ATELE T RDW 14.4 % 11.6-1 5.4 Not Available [facility] ([facility]) [address], [place], [address], 07/16/2023 04:10:32 07/15/19 24 07/16/2023 CBC WITH DIFFE RENTI AL/PL ATELE T platelets 242 x10e3 /uL 150-45 0 Not Available [facility] ([facility]) [address] [facility], [place], [address], 07/16/2023 04:10:32 07/15/19 24 07/16/2023 CBC WITH DIFFE RENTI AL/PL ATELE T neutrophils 59 % not estab. Not Available [facility] ([facility]) [address] [facility], [place], [address], 07/16/2023 04:10:32 07/15/19 24 07/16/2023 CBC WITH DIFFE RENTI AL/PL ATELE T lymphs 29 % not estab. Not Available [facility] ([facility]) [address] [facility], [place], [address], 07/16/2023 04:10:32 07/15/19 24 07/16/2023 CBC WITH DIFFE RENTI AL/PL ATELE T monocytes 7 % not estab. Not Available [facility] ([facility]) [address] [facility], [place], [address], 07/16/2023 04:10:32 07/15/19 24 07/16/2023 CBC WITH DIFFE RENTI AL/PL ATELE T eos 3 % not estab. Not Available [facility] ([facility]) [address] [facility], [place], [address], 07/16/2023 04:10:32 07/15/19 24 07/16/2023 CBC WITH DIFFE RENTI AL/PL ATELE T basos 2 % not estab. 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 0 above high normal Not Available [facility] ([facility]) [address] [place], [address], 07/16/2023 04:10:32 07/15/19 24 07/16/2023 CBC WITH DIFFE RENTI AL/PL ATELE T lymphs (absolute) 3.5 x10e3 /uL 0.7-3. 1 above high normal Not Available [facility] ([facility]) [address] [place], [address], 07/16/2023 04:10:32 07/15/19 24 07/16/2023 CBC WITH DIFFE RENTI AL/PL ATELE T monocytes(ab solute) 0.8 x10e3 /uL 0.1-0. 9 Not Available [facility] ([facility]) [address], [place], [address], 07/16/2023 04:10:32 07/15/19 24 07/16/2023 CBC WITH DIFFE RENTI AL/PL ATELE T eos (absolute) 0.4 x10e3 /uL 0.0-0. 4 Not Available [facility] ([facility]) [address] [facility], [place], [address], 07/16/2023 04:10:32 07/15/1907/16/2023 CBC WITH DIFFE RENTI AL/PL ATELE T baso (absolute) 0.2 x10e3 /uL 0.0-0. 2 Not Available [facility] ([facility]) [address] [facility], [place], [address], 07/16/2023 04:10:32 07/15/19 24 07/16/2023 CBC WITH DIFFE RENTI AL/PL ATELE T immature granulocytes 0 % not estab. Not Available [facility] ([facility]) [address] [facility], [place], [address], 07/16/2023 04:10:32 07/15/19 24 07/16/2023 CBC WITH DIFFE RENTI AL/PL ATELE T immature grans (abs) 0.0 x10e3 /uL 0.0-0. 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 METAB OLIC PANEL (14) glucose 129 mg/dL 70-99 above high normal Not Available [facility] ([facility]) [address] [place], [address], 07/16/2023 04:10:33 07/15/19 24 07/16/2023 COMP. METAB OLIC PANEL (14) BUN 17 mg/dL 8-27 Not Available [facility] ([facility]) [address] [place], [address], 07/16/2023 04:10:33 07/15/19 24 07/16/2023 COMP. METAB OLIC PANEL (14) creatinine 1.76 mg/dL 0.76-1 .27 above high normal Not Available [facility] ([facility]) [address] [place], [address], 07/16/2023 04:10:33 07/15/19 24 07/16/2023 COMP. METAB OLIC PANEL (14) eGFR 41 mL/mi n/1.7 3 >59 below low normal Not Available [facility] ([facility]) [address] [place], [address], 07/16/2023 04:10:33 07/15/19 24 07/16/2023 COMP. METAB OLIC PANEL (14) BUN/creatini ne ratio 10 - Not Available [facility] ([facility]) [address] [place], [address], 07/16/2023 04:10:33 07/15/19 24 07/16/2023 COMP. METAB OLIC PANEL (14) sodium 139 mmol/ L 134-14 4 Not Available [facility] ([facility]) [address] [place], [address], 07/16/2023 04:10:33 07/15/19 24 07/16/2023 COMP. METAB OLIC PANEL (14) potassium 4.7 mmol/ L 3.5-5. 2 Not Available [facility] ([facility]) [address], [place], [address], 07/16/2023 04:10:33 07/15/19 24 07/16/2023 COMP. METAB OLIC PANEL (14) chloride 101 mmol/ L 96-106 Not Available [facility] ([facility]) [address], [place], [address], 07/16/2023 04:10:33 07/15/19 24 07/16/2023 COMP. METAB OLIC PANEL (14) carbon dioxide, total 20 mmol/ L 20-29 Not Available [facility] ([facility]) [address], [place], [address], 07/16/2023 04:10:33 07/15/19 24 07/16/2023 COMP. METAB OLIC PANEL (14) calcium 9.6 mg/dL 8.6-10 .2 Not Available [facility] ([facility]) [address], [place], [address], 07/16/2023 04:10:33 07/15/19 24 07/16/2023 COMP. METAB OLIC PANEL (14) protein, total 6.7 g/dL 6.0-8. 5 Not Available [facility] ([facility]) [address] [place], [address], 07/16/2023 04:10:33 07/15/19 24 07/16/2023 COMP. METAB OLIC PANEL (14) albumin 4.3 g/dL 3.9-4. 9 Not Available [facility] ([facility]) [address] [place], [address], 07/16/2023 04:10:33 07/15/19 24 07/16/2023 COMP. METAB OLIC PANEL (14) globulin, total 2.4 g/dL 1.5-4. 5 Not Available [facility] ([facility]) [address] [place], [address], 07/16/2023 04:10:33 07/15/19 24 07/16/2023 COMP. METAB OLIC PANEL (14) A/G ratio 1.8 1.2-2. 2 Not Available [facility] ([facility]) [address] [place], [address], 07/16/2023 04:10:33 07/15/19 24 07/16/2023 COMP. METAB OLIC PANEL (14) bilirubin, total 0.5 mg/dL 0.0-1. 2 Not Available [facility] ([facility]) [address] [place], [address], 07/16/2023 04:10:33 07/15/19 24 07/16/2023 COMP. METAB OLIC PANEL (14) alkaline phosphatase 123 IU/L 44-121 above high normal Not Available [facility] ([facility]) [address] [place], [address], 07/16/2023 04:10:33 07/15/19 24 07/16/2023 COMP. METAB OLIC PANEL (14) AST (SGOT) 29 IU/L 0-40 Not Available [facility] ([facility]) [address] [place], [address], 07/16/2023 04:10:33 07/15/19 24 07/16/2023 COMP. METAB OLIC PANEL (14) ALT (SGPT) 32 IU/L 0-44 Not Available [facility] ([facility]) [address] [place], [address], 07/16/2023 04:10:33 07/15/19 24 07/16/2023 LIPID PANEL cholesterol, total 166 mg/dL 100-19 9 Not Available [facility] ([facility]) [address] [place], [address], 07/16/2023 04:10:34 07/15/19 24 07/16/2023 LIPID PANEL triglyceride s 424 mg/dL 0-149 above high normal Not Available [facility] ([facility]) [address] [place], [address], 07/16/2023 04:10:34 07/15/19 24 07/16/2023 LIPID PANEL HDL cholesterol 34 mg/dL >39 below low normal Not Available [facility] ([facility]) [address] [place], [address], 07/16/2023 04:10:34 07/15/19 24 07/16/2023 LIPID PANEL VLDL cholesterol landon 66 mg/dL 5-40 above high normal Not Available [facility] ([facility]) [address] [place], [address], 07/16/2023 04:10:34 07/15/19 24 07/16/2023 LIPID PANEL LDL chol calc ([facility]) 66 mg/dL 0-99 Not Available [facility] ([facility]) [address] [place], [address], 07/16/2023 04:10:34 07/15/19 24 07/16/2023 LIPID PANEL comment: 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 6 above high normal Predi abete s: 5.7 - 6.4 Diabe josephine: >6.4 Glyce alana contr ol for adult s with diabe josephine: <7.0 Not Available [facility] ([facility]) [address] [place], [address], 07/16/2023 04:10:35 07/15/19 24 07/16/2023 ALBUM IN, PATRICK M URINE albumin, urine 79.4 ug/mL not estab. Not Available [facility] ([facility]) [address] [place], [address], 07/16/2023 04:10:35 02/08/20 24 02/09/2024 CBC WITH DIFFE RENTI AL/PL ATELE T WBC 13.5 x10e3 /uL 3.4-10 .8 above high normal Not Available [facility] ([facility]) [address] [place], [address], 02/09/2024 06:23:03 02/08/20 24 02/09/2024 CBC WITH DIFFE RENTI AL/PL ATELE T RBC 5.09 x10e6 /uL 4.14-5 .80 normal Not Available [facility] ([facility]) [address] [place], [address], 02/09/2024 06:23:03 02/08/20 24 02/09/2024 CBC WITH DIFFE RENTI AL/PL ATELE T hemoglobin 15.4 g/dL 13.0-1 7.7 normal Not Available [facility] ([facility]) [address] [place], [address], 02/09/2024 06:23:03 02/08/20 24 02/09/2024 CBC WITH DIFFE RENTI AL/PL ATELE T hematocrit 47.5 % 37.5-5 1.0 normal Not Available [facility] ([facility]) [address] [place], [address], 02/09/2024 06:23:03 02/08/20 24 02/09/2024 CBC WITH DIFFE RENTI AL/PL ATELE T MCV 93 fL 79-97 normal Not Available [facility] ([facility]) [address] [place], [address], 02/09/2024 06:23:03 02/08/20 24 02/09/2024 CBC WITH DIFFE RENTI AL/PL ATELE T MCH 30.3 pg 26.6-3 3.0 normal Not Available [facility] ([facility]) [address] [facility], [place], [address], 02/09/2024 06:23:03 02/08/20 24 02/09/2024 CBC WITH DIFFE RENTI AL/PL ATELE T MCHC 32.4 g/dL 31.5-3 5.7 normal Not Available [facility] ([facility]) [address] [facility], [place], [address], 02/09/2024 06:23:03 02/08/20 24 02/09/2024 CBC WITH DIFFE RENTI AL/PL ATELE T RDW 13.7 % 11.6-1 5.4 Not Available [facility] ([facility]) [address] [facility], [place], [address], 02/09/2024 06:23:03 02/08/20 24 02/09/2024 CBC WITH DIFFE RENTI AL/PL ATELE T platelets 273 x10e3 /uL 150-45 0 normal Not Available [facility] ([facility]) [address] [facility], [place], [address], 02/09/2024 06:23:03 02/08/20 24 02/09/2024 CBC WITH DIFFE RENTI AL/PL ATELE T neutrophils 61 % not estab. normal Not Available [facility] ([facility]) [address] [place], [address], 02/09/2024 06:23:03 02/08/20 24 02/09/2024 CBC WITH DIFFE RENTI AL/PL ATELE T lymphs 25 % not estab. normal Not Available [facility] ([facility]) [address] [place], [address], 02/09/2024 06:23:03 02/08/20 24 02/09/2024 CBC WITH DIFFE RENTI AL/PL ATELE T monocytes 8 % not estab. normal Not Available [facility] ([facility]) [address] [place], [address], 02/09/2024 06:23:03 02/08/20 24 02/09/2024 CBC WITH DIFFE RENTI AL/PL ATELE T eos 3 % not estab. normal Not Available [facility] ([facility]) [address] [place], [address], 02/09/2024 06:23:03 02/08/20 24 02/09/2024 CBC WITH DIFFE RENTI AL/PL ATELE T basos 2 % not estab. 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 0 above high normal Not Available [facility] ([facility]) [address] [place], [address], 02/09/2024 06:23:03 02/08/20 24 02/09/2024 CBC WITH DIFFE RENTI AL/PL ATELE T lymphs (absolute) 3.4 x10e3 /uL 0.7-3. 1 above high normal Not Available [facility] ([facility]) [address] [place], [address], 02/09/2024 06:23:03 02/08/20 24 02/09/2024 CBC WITH DIFFE RENTI AL/PL ATELE T monocytes(ab solute) 1.0 x10e3 /uL 0.1-0. 9 above high normal Not Available [facility] ([facility]) [address] [facility], [place], [address], 02/09/2024 06:23:03 02/08/20 24 02/09/2024 CBC WITH DIFFE RENTI AL/PL ATELE T eos (absolute) 0.5 x10e3 /uL 0.0-0. 4 above high normal Not Available [facility] ([facility]) [address] [place], [address], 02/09/2024 06:23:03 02/08/20 24 02/09/2024 CBC WITH DIFFE RENTI AL/PL ATELE T baso (absolute) 0.2 x10e3 /uL 0.0-0. 2 normal Not Available [facility] ([facility]) [address] [facility], [place], [address], 02/09/2024 06:23:03 02/08/20 24 02/09/2024 CBC WITH DIFFE RENTI AL/PL ATELE T immature granulocytes 1 % not estab. Not Available [facility] ([facility]) [address] [place], [address], 02/09/2024 06:23:03 02/08/20 24 02/09/2024 CBC WITH DIFFE RENTI AL/PL ATELE T immature grans (abs) 0.1 x10e3 /uL 0.0-0. 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 METAB OLIC PANEL (14) glucose 136 mg/dL 70-99 above high normal Not Available [facility] ([facility]) [address] [place], [address], 02/09/2024 06:23:04 02/08/20 24 02/09/2024 COMP. METAB OLIC PANEL (14) BUN 16 mg/dL 8-27 normal Not Available [facility] ([facility]) [address] [place], [address], 02/09/2024 06:23:04 02/08/20 24 02/09/2024 COMP. METAB OLIC PANEL (14) creatinine 1.47 mg/dL 0.76-1 .27 above high normal Not Available [facility] ([facility]) [address] [place], [address], 02/09/2024 06:23:04 02/08/20 24 02/09/2024 COMP. METAB OLIC PANEL (14) eGFR 51 mL/mi n/1.7 3 >59 below low normal Not Available [facility] ([facility]) [address] [place], [address], 02/09/2024 06:23:04 02/08/20 24 02/09/2024 COMP. METAB OLIC PANEL (14) BUN/creatini ne ratio 11 10-24 normal Not Available [facility] ([facility]) [address] [place], [address], 02/09/2024 06:23:04 02/08/20 24 02/09/2024 COMP. METAB OLIC PANEL (14) sodium 139 mmol/ L 134-14 4 normal Not Available [facility] ([facility]) [address] [place], [address], 02/09/2024 06:23:04 02/08/20 24 02/09/2024 COMP. METAB OLIC PANEL (14) potassium 4.5 mmol/ L 3.5-5. 2 normal Not Available [facility] ([facility]) [address] [place], [address], 02/09/2024 06:23:04 02/08/20 24 02/09/2024 COMP. METAB OLIC PANEL (14) chloride 100 mmol/ L 96-106 normal Not Available [facility] ([facility]) [address] [place], [address], 02/09/2024 06:23:04 02/08/20 24 02/09/2024 COMP. METAB OLIC PANEL (14) carbon dioxide, total 19 mmol/ L 20-29 below low normal Not Available [facility] ([facility]) [address] [place], [address], 02/09/2024 06:23:04 02/08/20 24 02/09/2024 COMP. METAB OLIC PANEL (14) calcium 10.3 mg/dL 8.6-10 .2 above high normal Not Available [facility] ([facility]) [address] [place], [address], 02/09/2024 06:23:04 02/08/20 24 02/09/2024 COMP. METAB OLIC PANEL (14) protein, total 6.9 g/dL 6.0-8. 5 normal Not Available [facility] ([facility]) [address] [place], [address], 02/09/2024 06:23:04 02/08/20 24 02/09/2024 COMP. METAB OLIC PANEL (14) albumin 4.5 g/dL 3.9-4. 9 normal Not Available [facility] ([facility]) [address] [place], [address], 02/09/2024 06:23:04 02/08/20 24 02/09/2024 COMP. METAB OLIC PANEL (14) globulin, total 2.4 g/dL 1.5-4. 5 Not Available [facility] ([facility]) [address] [place], [address], 02/09/2024 06:23:04 02/08/20 24 02/09/2024 COMP. METAB OLIC PANEL (14) bilirubin, total <0.2 mg/dL 0.0-1. 2 Not Available [facility] ([facility]) [address] [place], [address], 02/09/2024 06:23:04 02/08/20 24 02/09/2024 COMP. METAB OLIC PANEL (14) alkaline phosphatase 141 IU/L 44-121 above high normal Not Available [facility] ([facility]) [address] [place], [address], 02/09/2024 06:23:04 02/08/20 24 02/09/2024 COMP. METAB OLIC PANEL (14) AST (SGOT) 31 IU/L 0-40 normal Not Available [facility] ([facility]) [address] [place], [address], 02/09/2024 06:23:04 02/08/20 24 02/09/2024 COMP. METAB OLIC PANEL (14) ALT (SGPT) 46 IU/L 0-44 above high normal Not Available [facility] ([facility]) [address] [place], [address], 02/09/2024 06:23:04 02/08/20 24 02/09/2024 LIPID PANEL cholesterol, total 181 mg/dL 100-19 9 normal Not Available [facility] ([facility]) [address] [place], [address], 02/09/2024 06:23:04 02/08/20 24 02/09/2024 LIPID PANEL triglyceride s 617 mg/dL 0-149 alert high Not Available [facility] ([facility]) [address] [place], [address], 02/09/2024 06:23:04 02/08/20 24 02/09/2024 LIPID PANEL HDL cholesterol 34 mg/dL >39 below low normal Not Available [facility] ([facility]) [address] [place], [address], 02/09/2024 06:23:04 02/08/20 24 02/09/2024 LIPID PANEL VLDL cholesterol landon 91 mg/dL 5-40 above high normal Not Available [facility] ([facility]) [address] [place], [address], 02/09/2024 06:23:04 02/08/20 24 02/09/2024 LIPID PANEL LDL chol calc ([facility]) 56 mg/dL 0-99 Not Available [facility] ([facility]) [address] [place], [address], 02/09/2024 06:23:04 02/08/20 24 02/09/2024 LIPID PANEL LDL calc comment: [employer] Not Available [facility] ([facility]) [address] [place], [address], 02/09/2024 06:23:04 02/08/20 24 02/09/2024 HEMOG LOBIN A1C hemoglobin A1C 6.7 % 4.8-5. 6 above high normal Predi abete s: 5.7 - 6.4 Diabe josephine: >6.4 Glyce alana contr ol for adult s with diabe josephine: <7.0 Not Available [facility] ([facility]) [address] [place], [address], 02/09/2024 06:23:05 08/09/19 25 08/09/2024 COMP. METAB OLIC PANEL (14) glucose 125 mg/dL 70-99 above high normal Not Available [facility] ([facility]) [address] [facility], [place], [address], 08/09/2024 11:13:13 08/09/19 25 08/09/2024 COMP. METAB OLIC PANEL (14) BUN 19 mg/dL 8-27 normal Not Available [facility] ([facility]) [address] [place], [address], 08/09/2024 11:13:13 08/09/19 25 08/09/2024 COMP. METAB OLIC PANEL (14) creatinine 1.79 mg/dL 0.76-1 .27 above high normal Not Available [facility] ([facility]) [address] [facility], [place], [address], 08/09/2024 11:13:13 08/09/19 25 08/09/2024 COMP. METAB OLIC PANEL (14) eGFR 40 mL/mi n/1.7 3 >59 below low normal Not Available [facility] ([facility]) [address] [facility], [place], [address], 08/09/2024 11:13:13 08/09/19 25 08/09/2024 COMP. METAB OLIC PANEL (14) BUN/creatini ne ratio 11 10-24 normal Not Available [facility] ([facility]) [address] [place], [address], 08/09/2024 11:13:13 08/09/19 25 08/09/2024 COMP. METAB OLIC PANEL (14) sodium 141 mmol/ L 134-14 4 normal Not Available [facility] ([facility]) [address] [place], [address], 08/09/2024 11:13:13 08/09/19 25 08/09/2024 COMP. METAB OLIC PANEL (14) potassium 4.2 mmol/ L 3.5-5. 2 normal Not Available [facility] ([facility]) [address] [place], [address], 08/09/2024 11:13:13 08/09/19 25 08/09/2024 COMP. METAB OLIC PANEL (14) chloride 104 mmol/ L 96-106 normal Not Available [facility] ([facility]) [address] [facility], [place], [address], 08/09/2024 11:13:13 08/09/19 25 08/09/2024 COMP. METAB OLIC PANEL (14) carbon dioxide, total 20 mmol/ L 20-29 normal Not Available [facility] ([facility]) [address] [place], [address], 08/09/2024 11:13:13 08/09/19 25 08/09/2024 COMP. METAB OLIC PANEL (14) calcium 9.5 mg/dL 8.6-10 .2 normal Not Available [facility] ([facility]) [address] [place], [address], 08/09/2024 11:13:13 08/09/19 25 08/09/2024 COMP. METAB OLIC PANEL (14) protein, total 6.6 g/dL 6.0-8. 5 normal Not Available [facility] ([facility]) [address] [place], [address], 08/09/2024 11:13:13 08/09/19 25 08/09/2024 COMP. METAB OLIC PANEL (14) albumin 4.4 g/dL 3.9-4. 9 normal Not Available [facility] ([facility]) [address] [place], [address], 08/09/2024 11:13:13 08/09/19 25 08/09/2024 COMP. METAB OLIC PANEL (14) globulin, total 2.2 g/dL 1.5-4. 5 Not Available [facility] ([facility]) [address] [place], [address], 08/09/2024 11:13:13 08/09/19 25 08/09/2024 COMP. METAB OLIC PANEL (14) bilirubin, total 0.2 mg/dL 0.0-1. 2 normal Not Available [facility] ([facility]) [address] [place], [address], 08/09/2024 11:13:13 08/09/19 25 08/09/2024 COMP. METAB OLIC PANEL (14) alkaline phosphatase 86 IU/L 44-121 normal Not Available [facility] ([facility]) [address] [place], [address], 08/09/2024 11:13:13 08/09/19 25 08/09/2024 COMP. METAB OLIC PANEL (14) AST (SGOT) 20 IU/L 0-40 normal Not Available [facility] ([facility]) [address] [place], [address], 08/09/2024 11:13:13 08/09/19 25 08/09/2024 COMP. METAB OLIC PANEL (14) ALT (SGPT) 26 IU/L 0-44 normal Not Available [facility] ([facility]) [address] [place], [address], 08/09/2024 11:13:13 08/09/19 25 08/09/2024 LIPID PANEL cholesterol, total 173 mg/dL 100-19 9 normal Not Available [facility] ([facility]) [address] [place], [address], 08/09/2024 11:13:14 08/09/19 25 08/09/2024 LIPID PANEL triglyceride s 416 mg/dL 0-149 above high normal Not Available [facility] ([facility]) [address] [place], [address], 08/09/2024 11:13:14 08/09/19 25 08/09/2024 LIPID PANEL HDL cholesterol 32 mg/dL >39 below low normal Not Available [facility] ([facility]) [address] [place], [address], 08/09/2024 11:13:14 08/09/19 25 08/09/2024 LIPID PANEL VLDL cholesterol landon 66 mg/dL 5-40 above high normal Not Available [facility] ([facility]) [address] [place], [address], 08/09/2024 11:13:14 08/09/19 25 08/09/2024 LIPID PANEL LDL chol calc ([facility]) 75 mg/dL 0-99 Not Available [facility] ([facility]) [address] [place], [address], 08/09/2024 11:13:14 08/09/19 25 08/09/2024 LIPID PANEL LDL calc comment: [employer] Not Available [facility] ([facility]) [address] [facility], [place], [address], 08/09/2024 11:13:14 08/09/19 25 08/09/2024 HEMOG LOBIN A1C hemoglobin A1C 6.7 % 4.8-5. 6 above high normal Predi abete s: 5.7 - 6.4 Diabe josephine: >6.4 Glyce alana contr ol for adult s with diabe josephine: <7.0 Not Available [facility] ([facility]) [address] [place], [address], 08/09/2024 11:13:15 08/09/19 25 08/09/2024 ALBUM IN, RANDO M URINE albumin, urine 25.9 ug/mL not estab. Not Available [facility] ([facility]) [address] [place], [address], 08/09/2024 11:13:16 07/19/19 24 07/18/2023 CT, angio gram, neck, w/ contr ast No observ [facility]ion [email or web address] [address], [place], [address], 07/19/2023 10:54:04 02/09/20 24 02/08/2024 photo , eye, fundu s No observ ation record ed. [email or web address] [address] , [place], [address], 02/09/2024 11:04:51 Result Notes None recorded. Problems Name Problem SNOMED Code Status Onset Date Resolution Date Notes Provider Name and Address Organization Details Recorded Time Osteoarthri tis 204058372 Active 2018 Maribel Henson null, [place] - [facility] 3 10:27:36 Prediabetes 498129804 Active 2018 Maribel H[place], [place] - [facility] 3 10:27:37 Ischemic foot 909837447 Active Crystal Earlywine null, [place] - [facility] 9 16:31:10 History of artificial joint 439860237 Active Crystal Earlywine null, [place] - [facility] 9 16:31:10 Stable angina 671482108 Completed 201505/19/2016 Crystal Earlywine null, [place] - [facility] 6 10:42:15 Chronic kidney disease 459682650 Completed 201505/19/2016 Crystal Early[place] [facility] 6 12:38:27 Chronic pain 39483169 Active 2015 Maribel Henson [place] [facility] 10:27:37 Chronic renal failure 88133076 Completed 201505/19/2016 Crystal Earlywine [place] [facility] 6 10:43:39 Edema 211736766 Completed 201505/19/2016 Crystal Early[place] [facility] 6 10:44:14 Gout 68772171 Completed 201505/19/2016 Crystal Caroe [place] [facility] 6 12:38:46 Hydronephro sis 33476612 Completed 201505/19/2016 Crystal Earlyalm adeliae null, [place] - [facility] 6 10:44:35 Hyperlipide andrea 64915491 Completed 201505/19/2016 Crystal Caroe [place] [facility] 6 12:34:18 Peripheral arterial occlusive disease 748664512 Completed 201505/19/2016 Crystal Caroe [place] [facility] 6 12:28:45 Carotid artery stenosis 64691669 Active 2015 Maribel [place] [facility] 3 10:27:37 Carotid bruit 681364680 Active 2015 Maribel [place] [facility] 3 10:27:36 Pain in lower limb 51851357 Active 2015 Maribel [place] [facility] 10:27:36 Neuropathy 447222296 Active 2015 Maribel [place] [facility] 3 10:27:36 Peripheral arterial occlusive disease 971941531 Active 2015 Maribel H[place] [facility] 3 10:27:36 Peripheral vascular disease 705898603 Active 2015 Maribel H[place] [facility] 3 10:27:36 Chronic kidney disease stage 2 979123207 Active 2015 Maribel H[place] [facility] 3 10:27:36 Pain of joint of ankle 266121204 Active 2015 Maribel H[place] [facility] 3 10:27:36 Pain of joint of foot 648172592 Active 2015 Maribel H[place] [facility] 3 10:27:36 Pain of hip region 89520723 Active 2015 Maribel H[place] - [facility] 3 10:27:36 Coronary atheroscler osis 575382983 Active 2015 [place] - [facility] 3 10:27:36 Hyperlipide andrea 54938093 Active 2015 [place] - [facility] 3 10:27:36 Essential hypertensio n 03661879 Active 2015 [place] - [facility] 3 10:27:36 Hypertensiv e heart disease 48598639 Active 2015 [place] - [facility] 3 10:27:37 Long-term drug therapy Active 2015 [place] - [facility] 3 10:27:36 Chronic kidney disease 782239731 Active 2015 [place] - [facility] 3 10:27:37 Fatigue 53182689 Active 2015 [place] - [facility] 3 10:27:37 Gout 38209079 Active 2015 [place] - [facility] 3 10:27:37 Carcinoma in situ of kidney 82104808 Completed 201505/20/2016 Sharri chadwick, [place] - [facility] 6 12:39:50 Ischemic peripheral neuropathy 796362708 Active 2015 [place] - [facility] 3 10:27:36 Right flank pain 978168863 Completed 201505/20/2016 [place] Cheng - [facility] 6 12:40:31 Insomnia 822425125 Active 2015 [place] - [facility] 3 10:27:36 Sciatica 69579072 Active 2015 [place] - [facility] 3 10:27:36 Dyspnea 532809276 Active 2015 [place] - [facility] 3 10:27:36 Claudicatio n Active 2015 [place] - [facility] 3 10:27:36 Right upper quadrant pain 460566890 Completed 201505/20/2016 Sharri Carrion null, [place] - [facility] 6 12:41:26 Carcinoma of prostate 536049492 Active 2022 Maribel Henson null, [place] - [facility] 3 10:27:36 Type 2 diabetes mellitus 68782549 Active 2024 Jim Sierra MD [address], [place], [address], [place] - [facility] 5 13:30:38 Notes:Some problems listed i n Document: #[id number] could not be added to this patient's chart. Please review this document and add these problems to the patient's chart manually as needed. Problem Notes None recorded. Procedures Surgical History Date Name Laterality Status Provider Name and Address Organization Details Recorded Time 09/02/19 23 Advance Care Planning completed Indira Welch [place] - [facility] 09/01/2022 10:04:02 09/02/19 23 Functional Status Assessed completed Indira FLORES - [facility] 09/02/19 23 10:04:02 08/29/19 22 Advance Care Planning completed Natalie Weber [place] - [facility] 08/28/2021 09:49:54 08/29/19 22 Functional Status Assessed completed Natalie FLORES - [facility] 08/28/2021 09:49:54 08/07/19 21 Systolic B/P less than 130 mm Hg completed Inidra Welch CT - [facility] 08/06/2020 09:11:14 08/07/19 21 Diastolic B/P less than 80 mm Hg completed Indira FLORES - [facility] 08/06/2020 09:11:17 02/07/20 20 Systolic B/P less than 130 mm Hg completed Indira Welch CT - [facility] 02/07/2020 16:47:03 02/07/20 20 Diastolic B/P less than 80 mm Hg completed Indira Welch CT - [facility] 02/07/2020 16:47:08 10/12/19 20 Systolic B/P less than 130 mm Hg completed Indira Welch CT - [facility] 10/12/2019 14:16:41 10/12/19 20 Diastolic B/P less than 80 mm Hg completed Indira Welch CT - [facility] 10/12/2019 14:16:45 07/25/19 20 Systolic B/P less than 130 mm Hg completed Indira Welch [place] - [facility] 07/25/2019 09:43:41 07/25/19 20 Diastolic B/P less than 80 mm Hg completed Indira FLORES - [facility] 07/25/2019 09:43:45 02/21/20 13 Partial hip replacement completed Sharri Carrion [place] - [facility] 05/20/2016 12:42:20 03/31/20 07 Colonoscopy completed Isatu Pritchard RN [address], [place], [address] [place] [facility] 07/28/2017 11:50:20 Back Surgery completed Indira FLORES - [facility] 08/06/2020 09:10:56 Femoral Artery Bypass completed Sharri FLORES - [facility] 05/19/2016 10:48:31 Knee Surgery completed Sharri FLORES - [facility] 05/20/2016 12:43:12 Remove kidney open completed Sharri Carrion [place] - [facility] 05/20/2016 12:44:21 Prostate Surgery completed Sharri FLORES - [facility] 05/20/2016 12:42:37 Angioplasty completed Sharri FLORES - [facility] 05/20/2016 12:43:30 Cardiac Cath completed Indira FLORES - [facility] 07/21/2018 09:40:58 Imaging Results None recorded. Procedure Notes None recorded. Medical Equipment None Reported. Allergies Allergen ID Allergen Name Allergen Category Reaction Reaction Severity Criticality Documentation Date Start Date Code Code System Note Provider Name and Address Organization Details Recorded Time 87822 simvastat in medicatio n Not available Not available Not available 02/27/20162011 24706 RxNorm Not Available [facility] 6 08:09:02 59771 Neurontin medicatio n Not available Not available Not available 05/20/2016 87208 8 RxNorm [place] - [facility] 6 12:24:33 Medications Name Sig Start Date Stop Date Status Note LastModified by Organization Details LastModified Time cyclobenz aprine 10 mg tablet Take 1 tablet twice a day by oral route for 30 days. 08/06 completed Not Available Not Available Not Available furosemid e 40 mg tablet Take 1 tablet every day by oral route for 30 days. 10/19 completed Not Available Not Available Not Available atorvasta tin 40 mg tablet Take 1 tablet every day by oral route. active Not Available Not Available No t Available metformin 500 mg tablet Take 1 tablet twice a day by oral route. active Not Available Not Available No t Available Biaxin 250 mg tablet take 1 tablet (250 mg) by oral route every 12 hours for 7 days 02/17 completed Biaxin Oral Tablet 250 mg;Recor ded Status: Recorded on: 02/04/20 10 10:29AM; Disconti nued Status: Disconti nued on: 02/18/20 10 9:14AM;U ser: calvom;E st. Completi on: 02/11/20 10;Print ed: 02/04/20 10 Not Available Not Available Not Available aspirin 325 mg tablet take 1 tablet (325 mg) by oral route once daily 06/09 completed Aspirin Oral Tablet 325 mg;Recor ded Status: Recorded on: 02/04/20 10 9:37AM;D iscontin ued Status: Disconti nued on: 06/09/19 12 9:05AM;U ser: earlywin ec Not Available Not Available Not Available cilostazo l 50 mg tablet Take 1 tablet twice a day by oral route. 09/09 completed Not Available Not Available Not Available hydrocodo ne 5 mg-acetam inophen 325 mg tablet 01/12 completed Not Available Not Available Not Available prednison e 20 mg tablet 02/24 completed Not Available Not Available Not Available isosorbid e mononitra te ER 30 mg tablet,ex tended release 24 hr 01/24 completed Not Available Not Available Not Available clopidogr el 75 mg tablet Take 1 tablet every day by oral route. active Not Available Not Available No t Available allopurin ol 100 mg tablet Take 300 mg by oral route. 07/24 completed Not Available Not Available Not Available ciproflox acin 500 mg tablet 09/01 completed Not Available Not Available Not Available hydrocodo ne 10 mg-acetam inophen 325 mg tablet 04/17 completed Not Available Not Available Not Available aspirin 81 mg tablet,de layed release 81 mg by oral route. 04/17 completed Not Available Not Available Not Available amitripty line 50 mg tablet Take 1 tablet every day by oral route for 90 days. 2024 active Not Available Not Available Not Avai lable simvastat in 40 mg tablet one daily 07/06 completed simvasta tin Oral Tablet 40 mg;Recor ded Status: Recorded on: 06/14/19 12 10:15AM; Disconti nued Status: Disconti nued on: 07/06/19 12 4:41PM;U ser: andrusa; Est. Completi on: 07/14/19 12 Not Available Not Available Not Available bisoprolo l fumarate 10 mg tablet Take 1 tablet every day by oral route. active Not Available Not Available No t Available oxycodone -acetamin ophen 5 mg-325 mg tablet 07/24 completed Not Available Not Available Not Available hydrocodo ne 10 mg-acetam inophen 500 mg tablet 1 every 8 hours prn 05/28 completed hydrocod one-acet aminophe n Oral tablet 10-500 mg;Recor ded Status: Recorded on: 02/28/20 12 11:33AM; User: [email or web address];E st. Completi on: 05/28/19 13;Indic ation: Pain - (95.0836 00) Not Available Not Available Not Available amitripty line 25 mg tablet 07/18 completed Not Available Not Available Not Available tamsulosi n 0.4 mg capsule Take by oral route for 90 days. active Not Available Not Available No t Available furosemid e 80 mg tablet Take 1 tablet every day by oral route for 90 days. 07/21 completed Not Available Not Available Not Available amlodipin e 10 mg tablet Take 1 tablet every day by oral route for 90 days. active Not Available Not Available No t Available cephalexi n 500 mg capsule 01/12 completed Not Available Not Available Not Available pantopraz ole 40 mg tablet,de layed release Take 1 tablet every day by oral route for 90 days. 2024 active Not Available Not Available Not Avai lable simvastat in 20 mg tablet take 1 tablet (20 mg) by oral route once daily in the evening for 30 days 05/27 completed Simvasta tin Oral Tablet 20 mg;Recor ded Status: Recorded on: 02/12/20 10 10:08AM; Disconti nued Status: Disconti nued on: 05/27/19 11 8:34AM;U ser: andrusa; Est. Completi on: 03/13/20 10;Print ed: 02/12/20 10 Not Available Not Available Not Available ranitidin e 300 mg capsule take 1 capsule (300 mg) by oral route once daily at bedtime for 30 days 09/23 completed ranitidi ne HCl Oral Capsule 300 mg;Recor ded Status: Recorded on: 05/27/19 11 9:06AM;D iscontin ued Status: Disconti nued on: 09/24/19 11 4:02PM;U ser: calvom;E st. Completi on: 06/26/19 11 Not Available Not Available Not Available calcium polycarbo linda 625 mg tablet Take 625 mg by oral route. 07/24 completed Not Available Not Available Not Available gabapenti n 300 mg capsule 01/24 completed Not Available Not Available Not Available allopurin ol 300 mg tablet Take 1 tablet every day by oral route for 90 days. 2024 active Not Available Not Available Not Avai lable acetamino phen 300 mg-codein e 60 mg tablet Take 1 tablet every 8 hours by oral route as needed for 30 days. 09/15 completed Not Available Not Available Not Available hydrochlo rothiazid e 25 mg tablet Take 1 tablet every day by oral route as directed . 09/09 completed Not Available Not Available Not Available mupirocin 2 % topical ointment 07/15 completed Not Available Not Available Not Available zolpidem 5 mg tablet 09/09 completed Not Available Not Available Not Available diazepam 10 mg tablet 09/01 completed Not Available Not Available Not Available levofloxa anastasiia 500 mg tablet 09/01 completed Not Available Not Available Not Available methylpre dnisolone 4 mg tablets in a dose pack take as directed for 7 days 02/06 completed Not Available Not Available Not Available Vitamin D2 1,250 mcg (50,000 unit) capsule once month 02/27 completed Vitamin D Oral Capsule 50,000 unit;Rec orded Status: Recorded on: 06/14/19 12 10:15AM; Disconti nued Status: Disconti nued on: 02/28/20 12 11:24AM; User: esvin EstCele Completi on: 01/10/20 12 Not Available Not Available Not Available colchicin e 0.6 mg tablet take 1/2 tablets (0.3 mg) by oral twice a day 09/23 completed Colchici ne Oral Tablet 0.6 mg;comme nt: states no longer availabl e;Record ed Status: Recorded on: 02/18/20 10 10:20AM; Disconti nued Status: Disconti nued on: 09/24/19 11 4:02PM;U ser: calvTrever st. Completi on: 08/17/19 11;Indic ation: Gout - ();Prin debora: 02/18/20 10 Not Available Not Available Not Available losartan 100 mg tablet Take 1 tablet every day by oral route. active Not Available Not Available No t Available Ambien 10 mg tablet Take 1 tablet every day by oral route at bedtime. 09/09 completed Not Available Not Available Not Available oxycodone 5 mg tablet 02/06 completed Not Available Not Available Not Available Benicar 40 mg tablet take 1 tablet (40 mg) by oral route once daily for 30 days 08/26 completed Benicar Oral tablet 40 mg;Recor ded Status: Recorded on: 02/28/20 12 11:31AM; User: Faisal st. Completi on: 08/27/19 13;Print ed: 02/28/20 12 Not Available Not Available Not Available enoxapari n 40 mg/0.4 mL subcutane ous syringe 40 mg by sub-q route. 01/07 completed Not Available Not Available Not Available Zetia 10 mg tablet take 1 tablet (10 mg) by oral route once daily for 30 days 02/27 completed Zetia Oral Tablet 10 mg;Recor ded Status: Recorded on: 07/06/19 12 4:43PM;D iscontin ued Status: Disconti nued on: 02/28/20 12 11:24AM; User: [email or web address]; Est. Completi on: 01/02/20 12 Not Available Not Available Not Available cyclobenz aprine 5 mg tablet 02/06 completed Not Available Not Available Not Available rosuvasta tin 40 mg tablet Take 1 tablet every day by oral route for 90 days. 02/06 completed Not Available Not Available Not Available Zanaflex 4 mg capsule take 1 capsule (4 mg) by oral route at bedtime 06/09 completed Zanaflex Oral Capsule 4 mg;Recor ded Status: Recorded on: 11/17/19 11 4:13PM;D iscontin ued Status: Disconti nued on: 06/09/19 12 9:05AM;U ser: esvin Est. Completi on: 02/15/20 11;Indic ation: Muscle Spasm - (13.7288 50);Prin debora: 11/17/19 11 Not Available Not Available Not Available fenofibra te 160 mg tablet Take 1 tablet every day by oral route. active Not Available Not Available No t Available fiber Take one tablet once daily. 07/24 completed Not Available Not Available Not Available Lovaza 1 gram capsule take 2 capsules (2 gram) by oral route 2 times per day for 30 days 02/27 completed Lovaza Oral Capsule 1 gram;Rec orded Status: Recorded on: 07/06/19 12 4:43PM;D iscontin ued Status: Disconti nued on: 02/28/20 12 11:24AM; User: jon EstCele Completi on: 01/02/20 12 Not Available Not Available Not Available Bystolic 10 mg tablet take 1 tablet (10 mg) by oral route once daily for 30 days 02/27 completed Bystolic Oral Tablet 10 mg;Recor ded Status: Recorded on: 11/17/19 11 4:13PM;D iscontin ued Status: Disconti nued on: 02/28/20 12 11:23AM; User: esvin Tuttle Complettayo on: 02/15/20 11;Print ed: 11/17/19 11 Not Available Not Available Not Available nebivolol 5 mg tablet 5 mg by oral route. 03/30 completed Not Available Not Available Not Available diclofena c 1 % topical gel active Not Available Not Available Not Available Uloric 40 mg tablet take 1 tablet by oral route daily for 30 days 11/17 completed Uloric Oral Tablet 40 mg;Recor ded Status: Recorded on: 11/17/19 11 4:13PM;D iscontin ued Status: Disconti nued on: 11/18/19 11 9:32AM;U ser: [email or web address]; Est. Completi on: 02/15/20 11;Print ed: 11/17/19 11 Not Available Not Available Not Available febuxosta t 80 mg tablet 80 mg by oral route. 03/30 completed Not Available Not Available Not Available Livalo 4 mg tablet Take 1 tablet every day by oral route. 02/20 completed Not Available Not Available Not Available psyllium husk (with sugar) 3 gram/12 gram oral powder 03/30 completed Not Available Not Available Not Available Vitals Date Recorded Body height Body mass index (BMI) Body weight Body temperature Heart rate Oxygen saturation Oxygen saturation in Arterial blood by Pulse oximetry Respiratory rate Systolic And Diastolic Provider Name and Address Organization Details Last Updated DateTime 4 177.8 cm 31.9 kg/m2 128139. 51 g 98.2 [degF] 68 /min 94 % 94 % 18 /min 112/60 mm[Hg] Indira Welch [place] - [facility] 4 11:45:16 Date Recorded Body height Respiratory rate Body mass index (BMI) Body weight Body temperature Heart rate Oxygen saturation Oxygen saturation in Arterial blood by Pulse oximetry Systolic And Diastolic Provider Name and Address Organization Details Last Updated DateTime 5 177.8 cm 18 /min 31.9 kg/m2 009025. 66 g 98.2 [degF] 67 /min 96 % 96 % 142/60 mm[Hg] Susan Monge [place] - [facility] 5 13:18:36 Date Recorded Body height Body mass index (BMI) Body weight Body temperature Heart rate Oxygen saturation Oxygen saturation in Arterial blood by Pulse oximetry Respiratory rate Systolic And Diastolic Provider Name and Address Organization Details Last Updated DateTime 4 177.8 cm 31.9 kg/m2 511257. 51 g 98.1 [degF] 76 /min 95 % 95 % 18 /min 138/64 mm[Hg] Indira Welch [place] - [facility] 4 12:55:56 Date Recorded Body height Heart rate Oxygen saturation Oxygen saturation in Arterial blood by Pulse oximetry Body temperature Respiratory rate Provider Name and Address Organization Details Last Updated DateTime 4 177.8 cm 77 /min 96 % 96 % 97.7 [degF] 18 /min Steffany Suarez [place] - [facility] 4 10:52:06 Date Recorded Body height Body mass index (BMI) Body weight Body temperature Heart rate Oxygen saturation Oxygen saturation in Arterial blood by Pulse oximetry Respiratory rate Systolic And Diastolic Provider Name and Address Organization Details Last Updated DateTime 4 177.8 cm 31.1 kg/m2 80377.5 4 g 97.9 [degF] 74 /min 95 % 95 % 18 /min 114/60 mm[Hg] Indira Welch [place] - [facility] 4 09:14:03 Social History Question Answer Notes LastModified by Organization Details LastModified Time Tobacco Smoking Status Former Smoker Sharri [place]wick [place] - [facility] 05/19/2016 10:51:53 Able To Swim? Yes Information not available 02/24/2017 Do You Have An Advance Directive? No Information not available 02/24/2017 Are You Blind Or Do You Have Difficulty Seeing? No Information not available 02/24/2017 What Is Your Level Of Caffeine Consumption? Heavy Information not available 02/24/2017 How Much Tobacco Do You Chew? None Information not available 05/20/2016 In The 14 Days Before Symptom Onset, Have You Had Close Contact With A Laboratory-confi rmed COVID-19 While That Case Was Ill? No Information not available 08/28/2021 In The 14 Days Before Symptom Onset, Have You Had Close Contact With A Person Who Is Under Investigation For COVID-19 While That Person Was Ill? No Information not available 08/28/2021 Have You Been To An Area Known To Be High Risk For COVID-19? No Information not available 08/28/2021 Are You Deaf Or Do You Have Serious Difficulty Hearing? No Information not available 02/24/2017 What Type Of Diet Are You Following? REGULAR Information not available 02/24/2017 Which Illicit Or Recreational Drugs Have You Used? None Information not available 02/24/2017 Have You Processed Blood Or Body Fluids From An Ebola Virus Disease Patient Without Appropriate PPE? No Information not available 08/28/2021 Do You Reside In Or Have You Traveled To An Area Where Ebola Virus Transmission Is Active? No Information not available 08/28/2021 What Is The Highest Grade Or Level Of School You Have Completed Or The Highest Degree You Have Received? [id number] Information not available 02/06/2021 Swimming/diving Yes Informati on not available 02/24/2017 Have There Been Any Changes To Your Family Or Social Situation? No Information not available 02/06/2021 What Is The Fluoride Status Of Your Home? Fluoridated Information not available 02/06/2021 When Did You Quit Smoking? 6-10yearssincel astcigarette Information not available 02/24/2017 Hard Of Hearing Or Deaf In One Or Both Ears? No Information not available 02/24/2017 Have You Recently Or Are You Planning To Travel To An Area With Zika Virus? No Information not available 08/28/2021 Legally Blind In One Or Both Eyes? No Information not available 02/24/2017 Live Alone Or With Others? With Others Information not available 05/19/2016 Do You Have A Medical Power Of Svp Operations? No Information not available 08/28/2021 What Was The Date Of Your Most Recent Tobacco Screening? 08/08/2024 Information not available 08/08/2024 How Many Children Do You Have? 2 Information not available 05/19/2016 What Is Your Current Pack Years? 30ormorepackyea rs Information not available 08/28/2021 What Is Your Relationship Status? Information not available 05/19/2016 Seat Belts Used Routinely Yes Information not available 02/24/2017 Are You Sexually Active? No Information not available 02/24/2017 Smoke Alarm In Home Yes Information not available 02/24/2017 Do You Have Smoke And Carbon Monoxide Detectors In Your Home? Yes Information not available 02/06/2021 At What Age Did You Start Smoking Tobacco? 14 Information not available 05/20/2016 Are You Passively Exposed To Smoke? No Information not available 02/24/2017 How Much Tobacco Do You Smoke? No Information not available 08/08/2024 General Stress Level Low Information not available 05/20/2016 Do You Use Sunscreen Routinely? No Information not available 02/24/2017 Has Tobacco Cessation Counseling Been Provided? No Information not available 02/24/2017 On What Date Was Tobacco Cessation Counseling Provided? 09/15/2022 [facility] Answered No To The Tobacco Cessation Counseling Provided Question On 02/24/2017. [email or web address] Information not available 09/15/2022 How Many Years Have You Smoked Tobacco? 36 Started Smoking At Age 14 Stopped 7 Years Ago (todays Date 05/19/16) Information not available 02/24/2017 Do You Have Difficulty Walking Or Climbing Stairs? Yes Information not available 05/19/2016 Do You Want To Talk About Contraception Or Prevention During Your Visit Today? No - I Do Not Want To Talk About Contraception Today Because I Am Here For Something Else Information not available 01/12/2023 Sex: Male Functional Status Question Answer Note LastModified by Organizat ion Details LastModified Time How many times per week do you consume alcohol? 1-2 times per week beer Information not available 08/28/2021 Do you or have you ever used smokeless tobacco? Never used smokeless tobacco Information not available 01/24/2019 Are you currently employed? No disabled Information not available 05/19/2016 Do you have transportation difficulties? No Information not available 02/06/2021 Are you able to care for yourself? Yes Information not available 02/24/2017 Do you have difficulty dressing or bathing? No Information not available 02/24/2017 Do you or have you ever used e-cigarettes or vape? Never used electronic cigarettes Information not available 01/24/2019 What is your exercise level? None Information not available 02/24/2017 Do you use any illicit or recreational drugs? No Information not available 02/06/2021 Do you or have you ever used any other forms of tobacco or nicotine? No Information not available 02/06/2021 What is your level of alcohol consumption? Moderate Drinks beer regular Information not available 05/19/2016 Are you able to walk? YESWOREST Information not available 02/24/2017 Do you have difficulty doing errands alone? No Information not available 02/24/2017 What is your occupation? retired [email or web address] Information not available 06/26/2020 Mental Status Question Answer Note LastModified by Organizat ion Details LastModified Time Do you feel stressed (tense, restless, nervous, or anxious, or unable to sleep at night)? [id number] guthrie corning Information not available 02/06/2021 Do you have difficulty concentrating, remembering or making decisions? No guthrie corning Information no t available 02/24/2017 Family History Relationship Description Onset Age of this Age Resolved Age Notes LastModified by Organization Details LastModified Time Unspecified Relation Asthma [email or web address] Not available 2015 10:54:17 Mother Heart disease alive [email or web address] Not available 05/20 12:50:27 Mother Diabetes mellitus Type 2, alive [email or web address] Not available 05/20/2016 12:50:17 Brother Malignant neoplastic disease 56 lung cancer [email or web address] Not available 05/20/2016 12:48:42 Brother Carcinoma of prostate Alive [email or web address] Not available 05/20 12:49:56 Sister Myocardial infarction 55 [email or web address] Not available 04/23 12:49:18 Sister Cerebrovascu lar accident 41 [email or web address] Not available 12:50:45 Father Myocardial infarction 63 [email or web address] Not available 04/23 12:49:18 Medical History Condition Response Pancreatitis N Coronary Artery Disease Y Other N Gout Y Atrial Fibrillation N congenital heart disease N Blood Diseases N Kidney Stones N Hyperthyroidism N Blood Transfusion N Rheumatoid arthritis N Erectile Dysfunction N amputation N Colonoscopy N Skin Lesions N COPD N Depression N Pneumonia N Incontinence N Murmur N Edema N Alzheimer's Disease N Migraine Headaches N Tobacco Abuse N Anxiety Disorder N Hemorrhoids N Muscle, Joint, or Bone Problems Y Obesity N Vision or Eye Problems N Arthritis N Restless Leg Syndrome N Polyps N Infertility N Mental Disorder N Carpal Tunnel N Acid Reflux (GERD) Y Cancer N Varicosities N Stroke N Tendonitis N Crohn's Disease N Hypercholesterolemia Y Skin Cancer N Headaches N Fibromyalgia N Anal Fissure N Irritable Bowel Syndrome N Kidney Disease Y Heart Problems N Ear or Hearing Problems N Hospitalizations N Gallstones N Kidney or Bladder Problems N Goiter N Acne N Skin Problems N Eating Disorder N Oseguera's Esophagus N Hypertriglyceridemia N MRSA exposure N Constipation N Embolism N Vitamin B12 Deficiency N Deviated Septum N Tuberculosis N AIDS/HIV N Myocardial Infarction N Asthma N Mitral Valve Disorders N Vertigo N Hepatitis N Thyroid Cancer N Neuropathy N Pulmonary Embolism N History of DVT N Herniated Disc N Chronic Ear Infections N Chicken Pox N Autism Spectrum Disorder (ASD) N Von Willebrands Disease N Thrombophilias N Breast Cancer N Hernia N Plantar Fasciitis N Hospital Admission Other Than N Lung Disease N Hypothyroidism N Defects or Inherited Disease N Developmental or Behavioral Disorders N Breast Problem N Difficulty Swallowing N Ovarian Cyst N Anesthesia Complications N Testosterone Deficiency N Meniere's disease N Head Injury/Concussion N Interstitial Cystitis N Congenital Anomalies N Hypoglycemia N Blood clot N Vitamin D Deficiency N Cellulitis N Endometriosis N Fracture N Bladder or Kidney Problems N Liver Disease N Panic Disorder N Schizophrenia N Concussion N Spina Bifida N Allergies/Hayfever N Osteoarthritis N Parkinson's Disease N Disc Protrusion N STI N Esophagitis N Angina N Thyroid Problems N GI Problems N ADD/ADHD N Anemia N Multiple Sclerosis N Abnormal PAP N Lumbago N Mental Illness N Psychiatric Illness N Diabetes N Ovarian Cancer N Bedwetting N Degenerative Disc Disease N Seizures/Epilepsy N Congestive Heart Failure (CHF) N Hyperlipidemia N Syncope N Insomnia N Eczema N Abuse/Domestic Violence N Attention Deficient Disorder N Diverticulitis N Dementia N Ulcerative colitis N Cerebrovascular Disease N Depression N Guillain-Preston N Sleep Apnea N Aneurysm N Bronchitis N Heart Disease N Suicidal Ideation N Pre-Eclampsia N Hypertension Y Osteoporosis N Past Encounters Encounter ID Performer Location Encounter Start Date Encounter Closed Date Diagnosis/Indication Diagnosis SNOMED-CT Code Diagnosis ICD10 Code Diagnosis Note [id number] J Luis Johnson DO [address] [place] [address] 05/21/2016 09:47:51 05/21/2016 11:43:07 Peripheral vascular disease 725210349 I73.9 Essential hypertension 70225470 I10 Gout 14837276 M10.9 Chronic ki dney disease stage 3 952390189 N18.3 [id number] J Luis Johnson DO [address] [place] [address] 11/19/2016 07:48:17 11/19/2016 08:31:41 Coronary arteriosclerosis in [place] artery 6482668094 107 I25.10 Essential hypertension 67518662 I10 Hyperlipidemia 27519632 E78.5 Chronic ki dney disease stage 3 622406950 N18.3 [id number] Jim Sierra MD [address] [place] [address] 02/24/2017 09:43:14 02/24/2017 10:26:38 Ischemic peripheral neuropathy 268129841 G58.8 Peripheral arterial occlusive disease 005449621 I73.9 Carotid bruit 334765606 R09.89 Chronic ki dney disease stage 2 393674139 N18.2 Coronary atherosclerosis 482939844 I25.10 Hyperlipidemia 71769237 E78.5 Essential hypertension 44198045 I10 Chronic pain 92365955 G8 9.29 Gout 50722906 M10.9 Body mass index 25-29 - overweight 125627790 Z68.26 [id number] Jim Sierra MD [address] [place] [address] 09/09/2017 09:04:18 09/09/2017 10:26:42 Pain in lower limb 21436154 M79.669 Edema of l ower extremity 005877495 R60.0 Body mass index 25-29 - overweight 226266650 Z68.29 [id number] Jim Sierra MD [address] [place] [address] 10/19/2017 08:35:46 10/19/2017 09:35:04 Edema of lower extremity 846890607 R60.0 Body mass index 25-29 - overweight 915141645 Z68.29 [id number] Jim Sierra MD [address] [place] [address] 01/18/2018 08:54:08 01/18/2018 09:33:30 Ischemic peripheral neuropathy 258679730 G58.8 Peripheral vascular disease 020384520 I73.9 Carotid bruit 789637527 R09.89 Chronic ki dney disease stage 2 462412263 N18.2 Coronary atherosclerosis 077134696 I25.10 Hyperlipidemia 09057545 E78.5 Essential hypertension 28218271 I10 Gout 34990865 M10.9 Body mass index 25-29 - overweight 673341502 Z68.29 Screening for malignant neoplasm of prostate 473867703 Z12.5 [id number] Jim Sierra MD [address] [place] [address] 07/21/2018 09:16:48 07/21/2018 09:54:18 Pain in lower limb 13250096 M79.669 Ischemic p eripheral neuropathy 388194471 G58.8 Insomnia 065131802 G47.0 0 Pain of nubia int of ankle 358472265 M25.579 Sciatica 19686880 M54.32 Long-term drug therapy 727979923 Z79.899 Dyspnea 490502981 R06.00 Pain of joint of foot 27 9179571 M79.673 Neuropathy 267068853 G62 .9 Peripheral arterial occlusive disease 566373844 I73.9 Body mass index 30+ - obesity 477371299 Z68.30 [id number] Jim Sierra MD [address] [place] [address] 01/24/2019 08:15:20 01/24/2019 09:20:14 Carotid artery stenosis 62453926 I65.29 Carotid bruit 139743730 R09.89 Chronic ki dney disease 357101015 N18.9 Chronic ki dney disease stage 2 145174657 N18.2 Chronic pain 59744259 G8 9.29 Coronary atherosclerosis 072212285 I25.10 Essential hypertension 11977407 I10 Gout 73414724 M10.9 Screening for malignant neoplasm of colon 372491128 Z12.11 Screening for malignant neoplasm of prostate 910000891 Z12.5 Body mass index 30+ - obesity 058691987 Z68.30 [id number] Jim Sierra MD [address] [place] [address] 04/04/2019 08:37:57 04/04/2019 09:12:18 Pain of joint of ankle 873418334 M25.579 Carotid ar ric stenosis 73220038 I65.29 Carotid bruit 137337559 R09.89 Chronic ki dney disease 264166005 N18.9 Chronic ki dney disease stage 2 229782429 N18.2 Chronic pain 86650423 G8 9.29 Coronary atherosclerosis 382675285 I25.10 Dyspnea 668757073 R06.00 Essential hypertension 81048330 I10 Pain of joint of foot 27 2989098 M79.673 Gout 21286976 M10.9 Hyperlipidemia 10584863 E78.5 Hypertensi ve heart disease 26343289 I11.9 Insomnia 516732781 G47.0 0 Ischemic p eripheral neuropathy 493862992 G58.8 Neuropathy 873634651 G62 .9 Osteoarthritis 168831746 M19.90 Peripheral arterial occlusive disease 306274542 I73.9 Peripheral vascular disease 792275897 I73.9 Body mass index 30+ - obesity 254683633 Z68.30 Pre-surger y evaluation 188903246 Z01.818 Prediabetes 363483939 R7 3.03 [id number] Jim Sierra MD [address] [place] [address] 07/25/2019 09:16:43 07/25/2019 09:52:35 Ischemic peripheral neuropathy 520985668 G58.8 Insomnia 066299581 G47.0 0 Dyspnea 539295643 R06.00 Claudication 537711348 I 70.313 Pain of joint of foot 27 3086277 M79.673 Carotid ar ric stenosis 48102511 I65.29 Chronic ki dney disease 244329373 N18.9 Chronic ki dney disease stage 2 729648012 N18.2 Chronic pain 97720723 G8 9.29 Coronary atherosclerosis 978659527 I25.10 Essential hypertension 17796352 I10 Fatigue 38946166 R53.83 Gout 34071591 M10.9 Hyperlipidemia 37601468 E78.5 Hypertensi ve heart disease 47637157 I11.9 Neuropathy 136390381 G62 .9 Osteoarthritis 712533835 M19.90 Peripheral arterial occlusive disease 313354594 I73.9 Prediabetes 525911326 R7 3.03 Body mass index 25-29 - overweight 179983435 Z68.29 [id number] Jim Sierra MD [address] [place] [address] 10/12/2019 13:50:14 10/12/2019 14:44:20 Carotid artery stenosis 20617629 I65.29 Chronic ki dney disease 777488725 N18.9 Coronary atherosclerosis 016535390 I25.10 Essential hypertension 52173798 I10 Gout 23641392 M10.9 Hyperlipidemia 62312645 E78.5 Neuropathy 062316288 G62 .9 Peripheral vascular disease 365808078 I73.9 Degenerati on of lumbar intervertebral disc 53432356 M51.36 Body mass index 25-29 - overweight 952006975 Z68.28 [id number] Jim Sierra MD [address] [place] [address] 02/07/2020 16:10:42 02/07/2020 17:11:20 Polyp of vocal cord 8647001 J38.1 Muscle pain 09036210 M79 .10 Body mass index 30+ - obesity 360758780 Z68.30 [id number] Mary Jane Horowitz APRN [address] [place] [address] 07/18/2020 12:48:54 07/18/2020 13:28:52 Viral screening 229668163 Z11.52 [id number] Jim Sierra MD [address] [place] [address] 08/06/2020 08:43:52 08/06/2020 09:20:32 Carotid artery stenosis 63191844 I65.29 syable Carotid bruit 556933940 R09.89 stable Chronic ki dney disease stage 2 246678724 N18.2 stable Chronic pain 43950116 G8 9.29 stable Coronary atherosclerosis 407775199 I25.10 stable Essential hypertension 37764528 I10 controlled Gout 79778299 M10.9 controlled History of artificial joint 889470191 Z96.60 Hyperlipidemia 70204281 E78.5 controlled Hypertensi ve heart disease 33277166 I11.9 stable Insomnia 917474278 G47.0 0 stable Ischemic p eripheral neuropathy 110503002 G58.8 stable Neuropathy 750351372 G62 .9 stable Osteoarthritis 987996354 M19.90 controlled Peripheral vascular disease 824417798 I73.9 controlled Prediabetes 371123825 R7 3.03 stable Body mass index 30+ - obesity 055115145 Z68.30 [id number] Jim Sierra MD [address] [place] [address] 09/03/2020 08:52:20 09/03/2020 09:44:07 Carotid artery stenosis 09280104 I65.29 stable Chronic ki dney disease 544332347 N18.9 stable Chronic ki dney disease stage 2 724167662 N18.2 stable Coronary atherosclerosis 318313431 I25.10 stable Essential hypertension 15355530 I10 controlled Hyperlipidemia 23645906 E78.5 controlled Hypertensi ve heart disease 89995407 I11.9 stable Insomnia 227637988 G47.0 0 stable Neuropathy 608520983 G62 .9 stable Osteoarthritis 530117939 M19.90 controlled Peripheral arterial occlusive disease 843333552 I73.9 Peripheral vascular disease 911849095 I73.9 controlled Sciatica 41294152 M54.32 Prediabetes 319482665 R7 3.03 stable Degenerati on of lumbar intervertebral disc 22995401 M51.36 Pre-surger y evaluation 019394816 Z01.818 Body mass index 30+ - obesity 191514078 Z68.31 [id number] Jim Sierra MD [address] [place] [address] 02/06/2021 08:41:49 02/06/2021 09:27:53 Ischemic peripheral neuropathy 207258108 G58.8 stable Insomnia 261440387 G47.0 0 stable Dyspnea 186477601 R06.00 Carotid ar ric stenosis 37362995 I65.29 stable Essential hypertension 60348234 I10 controlled Hyperlipidemia 30067313 E78.5 controlled Coronary atherosclerosis 123637832 I25.10 stable Chronic ki dney disease stage 2 505366877 N18.2 stable Carotid bruit 785658276 R09.89 stable Peripheral vascular disease 259363453 I73.9 controlled Peripheral arterial occlusive disease 983285860 I73.9 Osteoarthritis 900655966 M19.90 controlled Chronic ki dney disease 886405791 N18.9 stable Chronic pain 69442533 G8 9.29 stable Gout 97634891 M10.9 controlled Pain of hip region 39119 002 M25.559 Hypertensi ve heart disease 33778072 I11.9 stable Neuropathy 885923478 G62 .9 stable Sciatica 19868415 M54.32 Body mass index 30+ - obesity 834789658 Z68.31 [id number] Jim Sierra MD [address] [place] [address] 08/28/2021 09:47:00 08/28/2021 10:47:22 Adult health examination 648107805 Z00.00 Depression screening 171 539362 Z13.89 Examinatio n of blood pressure 170593534 Z01.30 Diet education 65485991 Z71.3 Counseling 921352856 Z71 .82 Exercise counseling . Patient encouraged to exercise 30 minutes 5 days a week. At [facility] ed risk for falls 467686729 Z91.81 STEADI FAST screening score of ___4__. Advance care planning 71 5058418 Z71.89 Body mass index 30+ - obesity 417733931 Z68.31 Carotid ar ric stenosis 45883203 I65.29 stable Chronic pain 02097829 G8 9.29 stable Coronary atherosclerosis 665453044 I25.10 stable Essential hypertension 58735688 I10 controlled Gout 53519892 M10.9 controlled Hyperlipidemia 99456938 E78.5 controlled Neuropathy 677922205 G62 .9 stable Osteoarthritis 421758938 M19.90 controlled Peripheral arterial occlusive disease 607675677 I73.9 Screening for malignant neoplasm of prostate 752153116 Z12.5 [id number] Jim Sierra MD [address] [place] [address] 09/01/2022 09:34:16 09/01/2022 11:03:54 Adult health examination 570924918 Z00.00 Depression screening 171 392376 Z13.89 Examinatio n of blood pressure 759338210 Z01.30 Diet education 56978188 Z71.3 Counseling 247860884 Z71 .82 Exercise counseling . Patient encouraged to exercise 30 minutes 5 days a week. At [facility] ed risk for falls 580310839 Z91.81 STEADI FAST screening score of __5___. Advance care planning 71 3798806 Z71.89 Ischemic p eripheral neuropathy 681304288 G58.8 stable History of artificial joint 187575489 Z96.60 Insomnia 340197180 G47.0 0 stable Sciatica 56910900 M54.32 Dyspnea 317997961 R06.00 Claudication 784034158 I 70.313 Neuropathy 016698329 G62 .9 stable Osteoarthritis 773990937 M19.90 controlled Peripheral arterial occlusive disease 388774981 I73.9 Peripheral vascular disease 599991198 I73.9 controlled Carotid bruit 853784141 R09.89 stable Chronic ki dney disease stage 2 425387280 N18.2 stable Coronary atherosclerosis 621547416 I25.10 stable Hyperlipidemia 69419403 E78.5 controlled Essential hypertension 98268610 I10 controlled Carotid ar ric stenosis 30180930 I65.29 stable Hypertensi ve heart disease 33727600 I11.9 stable Chronic ki dney disease 119720180 N18.9 stable Prediabetes 928261829 R7 3.03 stable Carcinoma of prostate 25 2005450 C61 Hepatitis C screening 41 3841299 Z11.59 Screening for malignant neoplasm of colon 737073529 Z12.11 Screening for malignant neoplasm of respiratory tract 781357422 Z12.2 Abdominal aortic aneurysm screening 270322283 Z13.6 Body mass index 30+ - obesity 204891259 Z68.31 [id number] Jim Sierra MD [address] [place] [address] 09/15/2022 10:56:32 09/15/2022 12:28:56 Insomnia 276281823 G47.00 stable Long-term drug therapy 654076582 Z79.899 Hyperlipidemia 06747812 E78.5 controlled Essential hypertension 08346712 I10 controlled Carotid ar ric stenosis 75468544 I65.29 stable Type 2 carmelo betes mellitus 07186568 E11.9 Body mass index 30+ - obesity 401095973 Z68.31 [id number] Jim Seirra MD [address] [place] [address] 01/12/2023 11:12:34 01/12/2023 11:45:46 Insomnia 130502961 G47.00 stable Hyperlipidemia 65404674 E78.5 controlled Essential hypertension 35779878 I10 controlled Carotid ar ric stenosis 97676942 I65.29 stable Carotid bruit 483650379 R09.89 stable Type 2 carmelo betes mellitus 68624512 E11.9 Body mass index 30+ - obesity 067388056 Z68.30 [id number] Jim Sierra MD [address] [place] [address] 07/15/2023 11:14:27 07/15/2023 12:07:40 Carcinoma of prostate 679640832 C61 Ischemic p eripheral neuropathy 597823193 G58.8 stable Insomnia 286599148 G47.0 0 stable Neuropathy 049248441 G62 .9 stable Osteoarthritis 622984175 M19.90 controlled Peripheral arterial occlusive disease 670022146 I73.9 Peripheral vascular disease 939071952 I73.9 controlled Carotid bruit 716597529 R09.89 stable Chronic ki dney disease stage 2 228001220 N18.2 stable Coronary atherosclerosis 987885682 I25.10 stable Hyperlipidemia 12452076 E78.5 controlled Essential hypertension 39037796 I10 controlled Carotid ar ric stenosis 32967128 I65.29 stable Hypertensi ve heart disease 29676646 I11.9 stable Chronic ki dney disease 282976655 N18.9 stable Chronic pain 49266987 G8 9.29 stable Gout 88637709 M10.9 controlled Type 2 carmelo betes mellitus 02935246 E11.9 [id number] Jim Sierra MD [address] [place] [address] 02/08/2024 12:39:47 02/08/2024 13:17:52 Carcinoma of prostate 120015546 C61 Ischemic p eripheral neuropathy 956211622 G58.8 stable Insomnia 199222248 G47.0 0 stable Peripheral vascular disease 616525122 I73.9 controlled Peripheral arterial occlusive disease 797717414 I73.9 Osteoarthritis 555553287 M19.90 controlled Neuropathy 682727100 G62 .9 stable Chronic ki dney disease stage 2 129237987 N18.2 stable Carotid bruit 353693287 R09.89 stable Hyperlipidemia 84406209 E78.5 controlled Essential hypertension 92439185 I10 controlled Hypertensi ve heart disease 73488519 I11.9 stable Prediabetes 818226174 R7 3.03 stable Gout 96537756 M10.9 controlled Chronic pain 44888417 G8 9.29 stable Chronic ki dney disease 764562788 N18.9 stable Type 2 carmelo betes mellitus 54145789 E11.9 Body mass index 30+ - obesity 302245755 Z68.31 [id number] Shane Blakely MD [address] [address] 04/11/2024 10:46:25 04/11/2024 11:13:39 Multiple skin tags 574974071 L91.8 these tags are interferin g with his visual field. Neoplasm of skin 1531427 04 D49.2 this most likely represents hyperpigme ntation due to trauma from friction from his clothing, but a biopsy is recommend to be certain of the nature of this mole. [id number] Jim Sierra MD [address] [place] [address] 05/04/2024 08:56:03 05/04/2024 10:12:34 Carcinoma of prostate 386442192 C61 Ischemic p eripheral neuropathy 134289898 G58.8 stable Neuropathy 881401598 G62 .9 stable Osteoarthritis 755179328 M19.90 controlled Peripheral arterial occlusive disease 465822446 I73.9 Peripheral vascular disease 256377573 I73.9 controlled Carotid bruit 541980534 R09.89 stable Chronic ki dney disease stage 2 891086063 N18.2 stable Coronary atherosclerosis 658364213 I25.10 stable Hyperlipidemia 44063668 E78.5 Essential hypertension 26704020 I10 controlled Chronic ki dney disease 920175161 N18.9 stable Prediabetes 432337134 R7 3.03 stable Chronic pain 81768093 G8 9.29 stable Gout 52425222 M10.9 controlled Hypertensi ve heart disease 18508809 I11.9 stable Carotid ar ric stenosis 99577198 I65.29 stable Insomnia 285818293 G47.0 0 stable Type 2 carmelo betes mellitus 14514087 E11.9 Gastroesop hageal reflux disease without esophagitis 206992643 K21.9 Body mass index 30+ - obesity 149936079 Z68.31 [id number] Jim Sierra MD [address] [place] [address] 08/08/2024 12:57:58 08/08/2024 13:43:11 Gastroesophageal reflux disease without esophagitis 979307069 K21.9 Gout 72384048 M10.9 controlled Insomnia 678501210 G47.0 0 stable Carcinoma of prostate 25 8482667 C61 Carotid ar ric stenosis 29126689 I65.29 stable Chronic ki dney disease 327326935 N18.9 stable Coronary atherosclerosis 008810945 I25.10 stable Essential hypertension 35911534 I10 controlled Hyperlipidemia 80237582 E78.5 Type 2 carmelo betes mellitus 99361608 E11.9 Body mass index 30+ - obesity 923994041 Z68.31 Health Concerns Section Related Observation LastModified by Organization Detai ls LastModified Time None Recorded Concern Status LastModified by Organization Details LastModified Time None Recorded Advance Directives Directive N: Payers Insurance Date Sequence Insurance Name Policy Number Policy Varma Covered Member ID Varma Member ID Guarantor Name 09/10/2022 2 [employer] - CHOICECARE (PPO) [id number] Jack Kendall [id number] Jack Kendall 09/10/2022 2 [employer] (MEDICARE SUPPLEMENT) Jack Kendall [id number] Jack Kendall 09/10/2022 [employer] (MEDICARE REPLACEMENT/A DVANTAGE - PPO) [id number] Jack Kendall [id number] Jack Kendall 09/10/2022 1 [employer] (PPO) [id number] Jack Kendall [id number] Jack Kendall 09/10/2022 2 [employer] (MEDICARE REPLACEMENT/A DVANTAGE - PPO) [id number] Jack Kendall [id number] Jack Kendall 09/10/2022 1 [employer] (MEDICARE REPLACEMENT/A DVANTAGE - PPO) Jack Spears Kendall [id number] Jack Kendall 08/14/2024 1 [place] Jack Spears Kendall [id number] Jack Kendall 09/10/2022 1 [employer] (MEDICARE SUPPLEMENT) Jack Kendall [id number] Jack Kendall 09/10/2022 1 [employer] (MEDICARE SUPPLEMENT) Jack Kendall [id number] Jack Kendall 08/14/2024 [employer] - [place] [facility] (MEDICARE) Jack Kendall [id number] Jack Kendall 09/10/2022 1 [employer] (MEDICARE REPLACEMENT/A DVANTAGE - PPO) Jack Spears Kendall [id number] Jack Kendall 09/10/2022 1 [employer] (MEDICARE SUPPLEMENT) Jack Kendall [id number] Jack Kendall 09/10/2022 1 [place] Jack Spears Kendall [id number] Jack Kendall 08/14/2024 1 [place] Jack Spears Kendall [id number] Jack Kendall 08/14/2024 2 [employer] (MEDICARE SUPPLEMENT) Jack Kendall [id number] Jack Kendall 09/10/2022 1 [employer] (MEDICARE REPLACEMENT/A DVANTAGE - PPO) Jack Spears Faiza [id number] Jack Kendall Notes Date Note Type Note Provider Name and Address Organization Details Recorded Time 07/15/2023 text/html Here for checkup and labs. Not checking BS. OK on eye exam and foot exam. Feels well. Jim Sierra MD [address], [place], [address], [place] - [facility] 07/15/2023 12:07:27 02/08/2024 text/html Here for checkup , labs. BS controlled. Jim Sierra MD [address], [place], [address], [place] - [facility] 02/08/2024 13:13:36 04/11/2024 text/html Patient reports skin tags on his right upper eyelid get in his field of vision frequently. For this reason he wants them removed.Patient grew up working out of doors.He has had considerable sun exposure in his life.He has no history of skin cancer, or family history of skin cancer. Patient has one mole on his central chest that is frequently irritated. It has been present a number of years. Shane Blakely MD [address], [place], [address], [facility] - [facility] 04/11/2024 11:41:35 05/04/2024 text/html Here for checkup and refills. Feels well. Not due labs till July. Jim Sierra MD [address], [place], [address], [place] - [facility] 05/04/2024 09:47:05 08/08/2024 text/html The patient is h ere for his 6-month follow-up appointment. He reports pain in his hands, knees, and back. The pain has been persistent but has not significantly changed since his last visit. He denies any recent trauma or changes in his condition. Not checking BS. Feels well. Jim Sierra MD [address], [place], [address], [place] - [facility] 08/08/2024 13:34:51
--- NOTE | 2024-11-22 11:15 | CA_ITS ---
FINAL REPORT TECHNIQUE: Jimenez scale, color and spectral doppler images of the bilateral carotid arteries were obtained. CLINICAL HISTORY: BLAZE,HTN,CAD COMPARISON: None FINDINGS: Peak systolic velocity in the right internal carotid artery is 307 cm/sec. The internal carotid to common carotid artery ratio is 3.8. There are areas of significant internal carotid artery stenosis and bulky plaque formation. The right vertebral artery is normal in direction. Peak systolic velocity in the left internal carotid artery is 190 cm/sec. The internal carotid to common carotid artery ratio is 1.7. There is no significant carotid artery stenosis and mild plaque formation. The left vertebral artery is normal in direction. IMPRESSION: No ultrasound evidence of hemodynamically significant carotid artery stenosis in the left carotid artery. There is high-grade 70 to 99% stenosis seen in the right internal carotid artery along with bulky plaque formation. Antegrade flow is present in the vertebral arteries bilaterally. Reviewed, Interpreted and Dictated by Augusto Cui MD Transcribed by Sudha Pope Authenticated and [facility]
== END 2024-11-22 23:59 | disposition home or self-care (01) ==
LOC: RT 10:52
PROVIDERS: PCP Family Medicine; Visit Provider Internal Medicine
DX: I65.21 Occlusion and stenosis of right carotid artery (principal); I73.9 Peripheral vascular disease, unspecified; I25.10 Atherosclerotic heart disease of native coronary artery without angina pectoris; I10 Essential (primary) hypertension
CPT/HCPCS: 93880